=== PATIENT | male | born 1995 | race African-American/Black ===

== ENCOUNTER 2018-02-17 11:51 | Inpatient (IN) ==
--- NOTE | 2018-02-17 12:15 | DR.DIZZY ---
HPI Time seen Time Seen by Provider: 02/17/18 12:14 PCP Primary Care Physician: TERRY HPI Comment HPI Comment: PATIENT WAS DIAPHORETIC AND TACHYCARDIC WHEN EMS WAD CALL TO TRANSPORT PATIENT TO ED. DENIES NAUSEA OR VOMITING. NO TRAVEL OUT OF US REPORTED. Complaint Chief Complaint Doctor Comments: ABDOMINAL PAIN, DIARRHEA, FEVER, CHILLS AND WEAKNESS Chief Complaint:: PT. IS FROM THE [facility]. 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 PT. C/O ABDOMINAL PAIN, DIARRHEA, HEADACHE, WEAKNESS AND CHILLS. Nurses Notes Reviewed Nurses Notes Review: Yes Source History Provided: Patient and EMS Mode of Arrival Mode of Arrival: EMS Timing Onset of Chief Complaint: 02/17/18 Came on: Suddenly Duration Duration: Constant Duration: Hours Location of Weakness Weakness Location: Generalized Context Onset: At rest and With light exertion Does pt take pot. toxic medication?: No History of: None Stroke Symptoms: None Severity Severity: Normal activity level Modifying factors Worsens: Nothing Associated signs and symptoms Associated Signs and Symptoms: Weak, Fever and Headache PMH PMH Past Medical History: No Past Surgical History: No Surgical History: No History Family History History of Family Medical Conditions: No Social History Does patient currently use any type of tobacco product: Yes Have you used tobacco products in the last 12 months: Yes Type of Tobacco Use: Cigarettes Does any household member use tobacco: No Alcohol Use: None Do you use any recreational Drugs:: No Lives [facility] infectious screening In the last 2 months have you had wt loss of >10#?: NO Have you had fever, night sweats or hemotysis?: No Have you traveled outside the country in the last 6 months?: No Isolation: Standard ROS Review of Systems Constitutional: Diaphoresis, Fever, Weakness and Fatigue Eyes: No Symptoms Reported ENTM: No Symptoms Reported Respiratoy: No Symptoms Reported Cardiovascular: No Symptoms Reported Gastrointestinal/Abdominal: Abdominal Pain and Diarrhea Genitourinary: No Symptoms Reported Neurological: Headache and Weakness Musculoskeletal: Muscle Pain Hematologic/Lymphatic: No Symptoms Reported Endocrine: No Symptoms Reported Psychiatric: No Symptoms Reported All Other Systems: Reviewed and Negative PE Vital Signs Vitals: Temperature 99.6 F Pulse Rate [Apical] 87 Pulse Rate 106 Respiratory Rate 17 Blood Pressure [Left Arm] 114/63 Blood Pressure 123/76 O2 Sat by Pulse Oximetry 96 General Limitations: No Limitations General Appearance: Alert and In No Apparent Distress Head Head Exam: Normal Inspection Eyes Eye exam: Normal Appearance Pupils: Regular, Round: Bilateral and Reactive: Bilateral Sclera/Conjunctival: Normal Inspection: Bilateral ENT ENT Exam: Normal Exam, Normal Oropharynx and Normal External Ear Exam Neck Neck Exam: Normal Inspection, Full ROM and Trachea Midline; negative Tenderness, Meningismus and Lymphadenopathy Chest Chest Inspection: Normal Inspection and Symmetric Chest Wall Rise Respiratory Respiratory Exam: Normal Lung Sounds Bilat Respiratory Exam: Bilateral: Clear to Auscultation Cardiovascular Cardiovascular Exam: Regular Rate and Normal Rhythm Abdominal Exam Abdominal Exam: Normal Inspection, Normal Bowel Sounds and Soft Abdominal Tenderness: Diffuse and Moderate Rectal Rectal Exam: Deferred Extremeties Extremities Exam: Normal Inspection and Full ROM Back Back Exam: Normal Inspection and Full ROM Neurologic Neurological Exam: Alert and Oriented X3; negative Motor Sensory Deficit Patient Oriented To: Person, Place and Time Cranial Nerve Exam: EOM Function (II, III, IV, ): Normal, Facial Sensation (V): Normal, Facial Palsy (VII): Normal, Gag reflex (XI): Normal and Tongue Deviation: Normal Motor Strength - LUE: 5/5 Motor Strength - RUE: 5/5 Motor Strength - LLE: 5/5 Motor Strength - RLE: 5/5 Upper Motor Neuron Exam: Babinski Sign: Normal Psychiatric Psychiatric Exam: Normal Affect and Normal Mood Skin Skin Exam: Dry MDM Differential Diagnosis Differential Diagnosis: Dehydration, Electrolyte disorder and Hypoglycemia Differential Diagnosis Comment: ABDOMINAL PAIN, BOWEL OBSTRUCTION, INFECTIVE DIARRHEAM UTI. PANCREATITIS, C COURSE Treatment Treatment: SEE ORDERS. 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 Reviewed Laboratory Results Reviewed?: Yes Result Diagrams: 02/17/18 13:36 02/17/18 13:36 Laboratory: WBC 8.7 X10^3/uL (3.6-10.0) 02/17/18 13:36 RBC 4.70 X10^6/uL (4.7-6.0) 02/17/18 13:36 Hgb 14.4 g/dL (13.5-18.0) 02/17/18 13:36 Hct 42.1 % (42.0-54.0) 02/17/18 13:36 MCV 89.4 fL (80.0-100.0) 02/17/18 13:36 MCH 30.6 pg (27.0-34.0) 02/17/18 13:36 MCHC 34.2 g/dL (33.0-35.0) 02/17/18 13:36 RDW 13.1 % (11.6-16.5) 02/17/18 13:36 Plt Count 201 X10^3/uL (150.0-450.0) 02/17/18 13:36 MPV 6.4 fL (7.4-11.0) L 02/17/18 13:36 Neut % (Auto) 81.1 % (42.0-75.0) H 02/17/18 13:36 Lymph % (Auto) 11.9 % (21.0-51.0) L 02/17/18 13:36 [place] % (Auto) 6.9 % (0.0-13.0) 02/17/18 13:36 Eos % (Auto) 0.0 % (0.9-2.9) L 02/17/18 13:36 Baso % (Auto) 0.1 % (0.2-1.0) L 02/17/18 13:36 Neut # (Auto) 7.1 x10^3/uL (2.2-4.8) H 02/17/18 13:36 Lymph # (Auto) 1.0 X10^3/uL (1.3-2.9) L 02/17/18 13:36 [place] # (Auto) 0.6 x10^3/uL (0.3-0.8) 02/17/18 13:36 Eos # (Auto) 0.0 x10^3/uL (0.0-0.2) 02/17/18 13:36 Baso # (Auto) 0.0 X10^3/uL (0.0-0.1) 02/17/18 13:36 Absolute Nucleated RBC 0.1 /100WBC 02/17/18 13:36 Sodium 133 mmol/L (136-145) L 02/17/18 13:36 Corrected Sodium TNP 02/17/18 13:36 Potassium 4.0 mmol/L (3.5-5.1) 02/17/18 13:36 Chloride 97 mmol/L (98-107) L 02/17/18 13:36 Carbon Dioxide 29.3 mmol/L (21-32) 02/17/18 13:36 BUN 15 mg/dL (7-18) 02/17/18 13:36 Creatinine 1.58 mg/dL (0.70-1.30) H 02/17/18 13:36 Est GFR (MDRD) Af Amer > 60 (>60) 02/17/18 13:36 Est GFR (MDRD) Non-Af 59 (>60) 02/17/18 13:36 Glucose 104 mg/dL (65-99) H 02/17/18 13:36 Calcium 8.8 mg/dL (8.5-10.1) 02/17/18 13:36 Corrected Calcium TNP 02/17/18 13:36 Total Bilirubin 0.50 mg/dL (0.2-1.0) 02/17/18 13:36 AST 44 Units/L (15-37) H 02/17/18 13:36 ALT 36 Units/L (12-78) 02/17/18 13:36 Alkaline Phosphatase 69 Units/L (46-116) 02/17/18 13:36 Total Protein 8.0 g/dL (6.4-8.2) 02/17/18 13:36 Albumin 3.4 g/dL (3.4-5.0) 02/17/18 13:36 Globulin 4.6 g/dL (2.5-4.5) H 02/17/18 13:36 Albumin/Globulin Ratio 0.7 Ratio (1.1-2.1) L 02/17/18 13:36 Amylase 89 Units/L (25-115) 02/17/18 13:36 Lipase 118 Units/L (73-393) 02/17/18 13:36 Specimen Type Clean catch urine 02/17/18 13:47 Urine Color Dark yellow (YELLOW) 02/17/18 13:47 Urine Appearance Clear (CLEAR) 02/17/18 13:47 Urine pH 7.0 (5.0 - 8.0) 02/17/18 13:47 Ur Specific [place] 1.010 (1.000-1.030) 02/17/18 13:47 Urine Protein 2+ (NEGATIVE) 02/17/18 13:47 Urine Glucose (UA) Negative (NEGATIVE) 02/17/18 13:47 Urine Ketones Negative (NEGATIVE) 02/17/18 13:47 Urine Occult Blood Negative (NEGATIVE) 02/17/18 13:47 Urine Nitrite Negative (NEGATIVE) 02/17/18 13:47 Urine Bilirubin Negative (NEGATIVE) 02/17/18 13:47 Urine Urobilinogen Normal (NORMAL) 02/17/18 13:47 Ur Leukocyte Esterase Negative (NEGATIVE) 02/17/18 13:47 Urine RBC None seen /HPF (NONE SEEN) 02/17/18 13:47 Urine WBC None seen /HPF (NONE SEEN) 02/17/18 13:47 Ur Squamous Epith Cells Rare /HPF (NEGATIVE) 02/17/18 13:47 Amorphous Sediment 1+ /HPF (NEGATIVE) 02/17/18 13:47 Urine Bacteria Trace /HPF (NEGATIVE) 02/17/18 13:47 Ur Culture Indicated? No/not indicated 02/17/18 13:47 Urine Opiates Screen Negative (NEG=<300) 02/17/18 13:48 Urine Methadone Screen Negative (NEG=<300) 02/17/18 13:48 Ur Barbiturates Screen Negative (NEG=<200) 02/17/18 13:48 Ur Phencyclidine Scrn Negative (NEG=<25) 02/17/18 13:48 Ur Amphetamines Screen Negative (NEG=<1000) 02/17/18 13:48 U Benzodiazepines Scrn Negative (NEG=<200) 02/17/18 13:48 Urine Cocaine Screen Negative (NEG=<300) 02/17/18 13:48 U Marijuana (THC) Screen Negative (NEG=<50) 02/17/18 13:48 Influenza Type A (PCR) Negative (NEGATIVE) 02/17/18 12:15 Influenza Type B (PCR) Negative (NEGATIVE) 02/17/18 12:15 S. pyogenes (TEM-PCR) Not detected (NOT DETECT) 02/17/18 12:15 XRAY XRAY Interpreted by: Radiologist XRAY Findings: REPORT DISCUSS WITH PATIENT AND GUARD. Instructions Instructions: Constipation, Adult, [id number] Abdominal Pain, Adult, [id number] General Headache Without Cause, [id number]
[2018-02-17 13:08] LABS: STREP A BY PCR NOT DETECTED (NOT DETECT)
--- NOTE | 2018-02-17 13:47 | CT ---
HISTORY: Headache. Study: CT brain without contrast.Dose reduction techniques including Automated Exposure Control (AEC) and adjustment of mA and kV were utilized. Comparison: None. Technique: Multiple axial images of the brain were obtained from the skull base to the vertex without administration of IV contrast. Findings: No acute intraparenchymal hemorrhage or mass can be identified. No extra-axial fluid collections are seen. No alteration in the attenuation of the brain parenchyma can be identified to suggest acute or subacute ischemic change. The ventricular system is symmetric and nondilated. The extracranial structures are grossly unremarkable. IMPRESSION: No acute intracranial process can be identified. Reported By:
[2018-02-17 13:48] LABS: BASOPHILS % (AUTO) 0.1 % (0.2-1.0); HEMATOCRIT 42.1 % (42.0-54.0); HEMOGLOBIN 14.4 g/dL (13.5-18.0); LYMPHOCYTES % (AUTO) 11.9 % (21.0-51.0); MEAN CORPUSCULAR HEMOGLOBIN 30.6 pg (27.0-34.0); MEAN CORPUSCULAR HGB CONC 34.2 g/dL (33.0-35.0); MEAN CORPUSCULAR VOLUME 89.4 fL (80.0-100.0); MEAN PLATELET VOLUME 6.4 fL (7.4-11.0); MONOCYTES # (AUTO) 0.6 x10^3/uL (0.3-0.8); MONOCYTES % (AUTO) 6.9 % (0.0-13.0); NEUTROPHILS # (AUTO) 7.1 x10^3/uL (2.2-4.8); NEUTROPHILS % (AUTO) 81.1 % (42.0-75.0); PLATELET COUNT 201 X10^3/uL (150.0-450.0); RED CELL DISTRIBUTION WIDTH 13.1 % (11.6-16.5); WHITE BLOOD COUNT 8.7 X10^3/uL (3.6-10.0)
[2018-02-17 13:53] LABS: BILIRUBIN,URINE NEGATIVE (NEGATIVE); BLOOD/HEMOGLOBIN,URINE NEGATIVE (NEGATIVE); GLUCOSE, URINE NEGATIVE (NEGATIVE); KETONES,URINE NEGATIVE (NEGATIVE); LEUKOCYTE ESTERASE ,URINE NEGATIVE (NEGATIVE); NITRITES,URINE NEGATIVE (NEGATIVE); PROTEIN,URINE 2+ (NEGATIVE); UROBILINOGEN,URINE NORMAL (NORMAL)
[2018-02-17 13:56] LABS: ALANINE AMINOTRANSFERASE 36 Units/L (12-78); ALBUMIN 3.4 g/dL (3.4-5.0); ALKALINE PHOSPHATASE 69 Units/L (46-116); AMYLASE 89 Units/L (25-115); ASPARTATE AMINO TRANSFERASE 44 Units/L (15-37); BLOOD UREA NITROGEN 15 mg/dL (7-18); CALCIUM 8.8 mg/dL (8.5-10.1); CARBON DIOXIDE 29.3 mmol/L (21-32); CHLORIDE 97 mmol/L (98-107); CREATININE 1.58 mg/dL (0.70-1.30); LIPASE 118 Units/L (73-393); SODIUM 133 mmol/L (136-145); eGFR NON BLACK RACES 59 (>60)
[2018-02-17 13:59] LABS: AMORPHOUS SEDIMENT,UR 1+ /HPF (NEGATIVE); APPEARANCE,URINE CLEAR (CLEAR); BACTERIA,URINE TRACE /HPF (NEGATIVE); COLOR,URINE DARK YELLOW (YELLOW); RBC,URINE NONE SEEN /HPF (NONE SEEN); SQUAMOUS EPITHELIAL CELL,UR RARE /HPF (NEGATIVE)
--- NOTE | 2018-02-17 14:33 | RAD ---
HISTORY: Weakness, diarrhea, abdominal pain, fever. Study: Acute abdominal series Comparison: No priors Findings: The trachea is midline. The cardiac silhouette is unremarkable. Very mild hyperinflation of the lungs. A few calcified granulomas are present bilaterally. The bony thorax is unremarkable. Flat plate and upright evaluation of the abdomen demonstrates a small amount mid epigastric small bowel gas. Abundant stool is present throughout colon with a 7.2 cm rectal fecal impaction. No bowel obstruction is seen. There is no evidence of free intraperitoneal air or fluid.. No pathological soft tissue mass or calcification can be observed. The bony structures are grossly intact. IMPRESSION: 1. No acute cardiopulmonary disease. 2. Mild small bowel ileus pattern. No bowel obstruction or perforation is seen. There is an abundance of stool present throughout the colon with a 7.2 cm rectal fecal impaction. Reported By:
[2018-02-17] MEDS ORDERED: TYLENOL 325 MG TAB PO ONE ×2 (14:59→15:01)
[2018-02-17] MEDS ORDERED: TORADOL 30 MG VIAL IVP ONE (16:15)
[2018-02-17] MEDS ORDERED: TORADOL 30 MG VIAL ONE (16:16)
--- NOTE | 2018-02-17 16:50 | CT ---
HISTORY: Abdominal pain, diarrhea, fever Study: CT abdomen and pelvis without contrast Comparison: Same day radiograph Technique: Multiple axial images of the abdomen and pelvis were obtained without IV contrast. Dose reduction techniques including Automated Exposure Control (AEC) and adjustment of mA and kV were utilized. Findings: Please note evaluation is limited without use of IV contrast. The visualized lung bases are clear. The liver, spleen, pancreas, and adrenal glands are unremarkable in their unenhanced CT appearance. The gallbladder is normal. No renal calculi or obstructive uropathy identified. No free intraperitoneal air. Scattered air-fluid levels are seen within the small and large bowel suggesting nonspecific enteritis. No evidence of bowel obstruction. There is some scattered retained stool in the distal colon rectum. The appendix is not identified with certainty on this noncontrast exam. No ascites The soft tissues and osseous structures are unremarkable. Limited evaluation of vascular structures due to lack of contrast. No pathologically enlarged lymph nodes are identified. Normal urinary bladder. IMPRESSION: 1. Nonspecific enteritis pattern of the bowel. 2. Appendix not clearly identified on this noncontrast exam. Reported By:
[2018-02-17] MEDS ORDERED: CIPRO IV 400 MG PREMIX* 400 MG/200 ML IV.SOLN. IV ONE ×2 (18:04→18:05)
[2018-02-17] MEDS ORDERED: PEPCID 20 MG IV PREMIX* 20 MG/50 ML BAG IV PRN (18:11)
[2018-02-17 18:43] VITALS: BMI 25.4
[2018-02-17] MEDS: NS 1000 ML 1,000 ML IV SCH (19:58)
[2018-02-17] MEDS: FLAGYL IV PREMIX 500 MG BAG 500 MG/100 ML BAG IV SCH (20:00)
[2018-02-17] MEDS: TYLENOL 325 MG TAB PO PRN (23:01)
[2018-02-18] MEDS: TORADOL 30 MG VIAL IVP PRN ×3 (00:29→21:36)
[2018-02-18] MEDS: FLAGYL IV PREMIX 500 MG BAG 500 MG/100 ML BAG IV SCH ×4 (02:57→21:36)
[2018-02-18] MEDS: TYLENOL 325 MG TAB PO PRN ×3 (02:58→19:51)
[2018-02-18] MEDS: NS 1000 ML 1,000 ML IV SCH ×2 (04:42→17:24)
[2018-02-18 06:08] LABS: BASOPHILS % (AUTO) 0.1 % (0.2-1.0); EOSINOPHILS % (AUTO) 0.1 % (0.9-2.9); HEMATOCRIT 38.7 % (42.0-54.0); HEMOGLOBIN 13.4 g/dL (13.5-18.0); LYMPHOCYTES # (AUTO) 0.9 X10^3/uL (1.3-2.9); LYMPHOCYTES % (AUTO) 13.1 % (21.0-51.0); MEAN CORPUSCULAR HEMOGLOBIN 30.7 pg (27.0-34.0); MEAN CORPUSCULAR HGB CONC 34.6 g/dL (33.0-35.0); MEAN CORPUSCULAR VOLUME 88.6 fL (80.0-100.0); MEAN PLATELET VOLUME 7.1 fL (7.4-11.0); MONOCYTES # (AUTO) 0.6 x10^3/uL (0.3-0.8); MONOCYTES % (AUTO) 8.9 % (0.0-13.0); NEUTROPHILS # (AUTO) 5.5 x10^3/uL (2.2-4.8); NEUTROPHILS % (AUTO) 77.8 % (42.0-75.0); PLATELET COUNT 177 X10^3/uL (150.0-450.0); RED BLOOD COUNT 4.36 X10^6/uL (4.7-6.0); RED CELL DISTRIBUTION WIDTH 13.1 % (11.6-16.5); WHITE BLOOD COUNT 7.1 X10^3/uL (3.6-10.0)
[2018-02-18 06:23] LABS: ALANINE AMINOTRANSFERASE 36 Units/L (12-78); ALBUMIN 2.8 g/dL (3.4-5.0); ALKALINE PHOSPHATASE 58 Units/L (46-116); ASPARTATE AMINO TRANSFERASE 38 Units/L (15-37); BLOOD UREA NITROGEN 18 mg/dL (7-18); CALCIUM 8.1 mg/dL (8.5-10.1); CARBON DIOXIDE 27.6 mmol/L (21-32); CHLORIDE 101 mmol/L (98-107); COR CA(FOR HYPOALB) 9.1 mg/dL (8.5-10.1); CREATININE 1.49 mg/dL (0.70-1.30); SODIUM 136 mmol/L (136-145); eGFR NON BLACK RACES > 60 (>60)
[2018-02-18] MEDS: CIPRO IV 400 MG PREMIX* 400 MG/200 ML IV.SOLN. IV SCH ×2 (10:02→20:32)
--- NOTE | 2018-02-18 18:07 | DR.H&P ---
H&P - History & Physical for Day of: H&P Date: 02/17/18 - Chief Complaint Chief Complaint: FEVER, ABD PAIN N.V.D. - History of Present Illness History of Present Illness: 22 BM ER ADMISSION AFTER PRESENTING WITH CO HIGH FEVER, N/V/D WORSE TODAY WITH ABDOMINAL PAIN AND DEHYDRATION. PT WAS FEBRILE IN ER, DENIES ANY PMH OF DM, HTN, CAD. PT ADMITTED FOR TREATMENT OF ACUTE ENTERITIS, STARTED ON IV ATBX - Past Medical History Past Medical History: denies: Anxiety, Asthma, COPD, Coronary Artery Disease, Diabetes, Hypertension - Past Surgical History Surgical History: No History - Social History Does patient currently use any type of tobacco product: Yes Have you used tobacco products in the last 12 months: Yes Type of Tobacco Use: Cigarettes Does any household member use tobacco: No Alcohol Use: None Drug Use: None - Medications Home Medications: No Known Drug Allergies Allergy (Verified 02/17/18 11:56) CONTINUE taking the following medications NK 02/17/18 [History] - Review of Systems Constitutional: Fever, Chills, Weakness, Malaise Eyes: No Symptoms Reported ENT: No Symptoms Reported Respiratory: No Symptoms Reported Cardiovascular: No Symptoms Reported Gastrointestinal: Nausea, Vomiting, Abdominal Pain, Diarrhea Genitourinary: No Symptoms Reported Musculoskeletal: No Symptoms Reported Skin: No Symptoms Reported Neurological: No Symptoms Reported - Physical Exam Vital Signs: Temperature 99.1 F Pulse Rate [Apical] 85 Pulse Rate 106 Respiratory Rate 20 Blood Pressure [Left Arm] 120/58 Blood Pressure 123/76 O2 Sat by Pulse Oximetry 96 Oriented: Normal Eyes: Normal Ear: Normal Nose: Normal Throat: Normal Respiratory: Clear Throughout Cardiovascular: Normal : Normal Auscultation: Bowel Sounds: Normal Palpation: Normal Tenderness: Normal Skin: Normal Musculoskeletal: Normal Psychiatric: Normal Mood Description: Calm Speech Pattern: Clear, Appropriate - Assessment/Plan (1) Fever Status: Acute Plan: ADMIT, ADMISSION LABS CBC CMP. STOOL STUDIES. GENTLE IV HYDRATION, IV ATBX. REPEAT AM LABS, ENCOURAGE ORAL HYDRATION (2) Enteritis Status: Acute (3) Abdominal pain Status: Acute - Allergies Allergies/Adverse Reactions: Allergies Allergy/AdvReac Type Severity Reaction Status Date / Time No Known Drug Allergies Allergy Verified 02/17/18 11:56
[2018-02-18] MEDS: PHENERGAN INJ 25 MG IVP PRN (19:46)
[2018-02-18 21:27] LABS: CRYPTOSPORIDIUM PARVUM ANTIGEN NEGATIVE (NEGATIVE); GIARDIA LAMBLIA ANTIGEN NEGATIVE (NEGATIVE); STOOL FOR WBC NEGATIVE (NEGATIVE)
[2018-02-19] MEDS: NS 1000 ML 1,000 ML IV SCH ×4 (00:44→21:09)
[2018-02-19] MEDS: FLAGYL IV PREMIX 500 MG BAG 500 MG/100 ML BAG IV SCH ×4 (02:32→21:09)
[2018-02-19 06:02] LABS: BASOPHILS % (AUTO) 0.1 % (0.2-1.0); EOSINOPHILS % (AUTO) 0.6 % (0.9-2.9); HEMATOCRIT 40.3 % (42.0-54.0); HEMOGLOBIN 13.7 g/dL (13.5-18.0); LYMPHOCYTES # (AUTO) 1.2 X10^3/uL (1.3-2.9); LYMPHOCYTES % (AUTO) 21.8 % (21.0-51.0); MEAN CORPUSCULAR HEMOGLOBIN 30.3 pg (27.0-34.0); MEAN CORPUSCULAR VOLUME 89.3 fL (80.0-100.0); MEAN PLATELET VOLUME 7.5 fL (7.4-11.0); MONOCYTES # (AUTO) 0.5 x10^3/uL (0.3-0.8); MONOCYTES % (AUTO) 9.1 % (0.0-13.0); NEUTROPHILS # (AUTO) 3.8 x10^3/uL (2.2-4.8); NEUTROPHILS % (AUTO) 68.4 % (42.0-75.0); PLATELET COUNT 152 X10^3/uL (150.0-450.0); RED BLOOD COUNT 4.52 X10^6/uL (4.7-6.0); RED CELL DISTRIBUTION WIDTH 13.2 % (11.6-16.5); WHITE BLOOD COUNT 5.5 X10^3/uL (3.6-10.0)
[2018-02-19 06:17] LABS: ALANINE AMINOTRANSFERASE 38 Units/L (12-78); ALBUMIN 2.9 g/dL (3.4-5.0); ALKALINE PHOSPHATASE 59 Units/L (46-116); ASPARTATE AMINO TRANSFERASE 38 Units/L (15-37); BLOOD UREA NITROGEN 17 mg/dL (7-18); CALCIUM 8.2 mg/dL (8.5-10.1); CHLORIDE 104 mmol/L (98-107); COR CA(FOR HYPOALB) 9.1 mg/dL (8.5-10.1); CREATININE 1.33 mg/dL (0.70-1.30); SODIUM 138 mmol/L (136-145); TOTAL PROTEIN 7.2 g/dL (6.4-8.2); eGFR NON BLACK RACES > 60 (>60)
[2018-02-19] MEDS: TORADOL 30 MG VIAL IVP PRN ×2 (07:54→16:15)
[2018-02-19] MEDS: CIPRO IV 400 MG PREMIX* 400 MG/200 ML IV.SOLN. IV SCH ×2 (08:05→21:09)
[2018-02-19] MEDS ORDERED: ROCEPHIN VIAL 1 GRAM IVP ONE (12:23)
[2018-02-19] MEDS: TYLENOL 325 MG TAB PO PRN (17:25)
[2018-02-20] MEDS: PHENERGAN INJ 25 MG IVP PRN ×2 (01:15→13:17)
[2018-02-20] MEDS: FLAGYL IV PREMIX 500 MG BAG 500 MG/100 ML BAG IV SCH ×4 (02:00→21:14)
[2018-02-20] MEDS: TYLENOL 325 MG TAB PO PRN ×2 (05:01→14:43)
[2018-02-20 05:47] LABS: BASOPHILS % (AUTO) 0.5 % (0.2-1.0); EOSINOPHILS % (AUTO) 0.7 % (0.9-2.9); HEMATOCRIT 37.4 % (42.0-54.0); HEMOGLOBIN 12.8 g/dL (13.5-18.0); LYMPHOCYTES # (AUTO) 0.9 X10^3/uL (1.3-2.9); LYMPHOCYTES % (AUTO) 21.3 % (21.0-51.0); MEAN CORPUSCULAR HEMOGLOBIN 30.3 pg (27.0-34.0); MEAN CORPUSCULAR HGB CONC 34.3 g/dL (33.0-35.0); MEAN CORPUSCULAR VOLUME 88.3 fL (80.0-100.0); MEAN PLATELET VOLUME 7.8 fL (7.4-11.0); MONOCYTES # (AUTO) 0.5 x10^3/uL (0.3-0.8); NEUTROPHILS # (AUTO) 2.8 x10^3/uL (2.2-4.8); NEUTROPHILS % (AUTO) 65.5 % (42.0-75.0); PLATELET COUNT 134 X10^3/uL (150.0-450.0); RED BLOOD COUNT 4.24 X10^6/uL (4.7-6.0); RED CELL DISTRIBUTION WIDTH 13.2 % (11.6-16.5); WHITE BLOOD COUNT 4.3 X10^3/uL (3.6-10.0)
[2018-02-20 05:54] LABS: ALANINE AMINOTRANSFERASE 31 Units/L (12-78); ALBUMIN 2.4 g/dL (3.4-5.0); ALKALINE PHOSPHATASE 52 Units/L (46-116); ASPARTATE AMINO TRANSFERASE 27 Units/L (15-37); BLOOD UREA NITROGEN 15 mg/dL (7-18); CALCIUM 7.7 mg/dL (8.5-10.1); CARBON DIOXIDE 24.6 mmol/L (21-32); CHLORIDE 105 mmol/L (98-107); CREATININE 1.38 mg/dL (0.70-1.30); SODIUM 138 mmol/L (136-145); TOTAL PROTEIN 6.2 g/dL (6.4-8.2); eGFR NON BLACK RACES > 60 (>60)
[2018-02-20] MEDS: CIPRO IV 400 MG PREMIX* 400 MG/200 ML IV.SOLN. IV SCH ×2 (09:13→21:14)
[2018-02-20] MEDS: NS 1000 ML 1,000 ML IV SCH ×3 (09:18→23:28)
--- NOTE | 2018-02-20 11:42 | RAD ---
HISTORY: Fever and abdominal pain Study: Two-view chest Comparison: None Technique: PA and lateral chest Findings: The soft tissues and bony thorax are normal. The heart size configuration airway and vascularity are normal the lungs are clear without infiltrates effusions. There is no hilar or mediastinal adenopathy. IMPRESSION: 1. Normal chest no acute cardiopulmonary abnormalities. Reported By:
--- NOTE | 2018-02-20 15:34 | PCM.PROG ---
Progress Note - Progress Note for Day of Date of Exam: 02/18/18 - Subjective Subjective: 22 BM ER ADMISSION WITH FEBRILE ILLNESS AND ENTERITIS. PT CURRENTLY ON IV ATBX WITH STOOL STUDIES PENDING. PT REPORTS IMPROVING N/V, MILD ABDOMINAL PAIN. PT CONTINUES WITH FEVER, BLOOD CULTURES COLLECTED ON ADMISSION NEGATIVE AT THIS TIME - Past Medical Family Social History Past Med/Fam/Surg Hx: No changes since H&P Allergies: Allergies No Known Drug Allergies Allergy (Verified 02/17/18 11:56) - Review of Systems ROS: No change since H&P - Vital Signs and I&O's Vital Signs: Temperature 104.5 F Pulse Rate [Apical] 74 Pulse Rate 106 Respiratory Rate 20 Blood Pressure [Left Arm] 130/86 Blood Pressure 123/76 O2 Sat by Pulse Oximetry 96 Intake and Output: Intake & Output 02/18/18 02/19/18 02/20/18 02/21/18 11:59 11:59 11:59 11:59 Intake Total 1160 / 1160 4720 / 4720 2498 / 2498 Balance 1160 / 1160 4720 / 4720 2498 / 2498 - Physical Exam Oriented: Normal Eyes: Normal Ear: Normal Nose: Normal Throat: Normal Respiratory: Normal Cardiovascular: Normal : Normal Auscultation: Bowel Sounds: Normal Tenderness: Epigastric, Mild Skin: Normal Musculoskeletal: Normal Psychiatric: Normal Mood Description: Calm Speech Pattern: Clear, Appropriate - Laboratory and Diagnostics Result Diagrams: 02/20/18 05:15 02/20/18 05:15 Labs: 02/18/18 20:33 Stool Stool Culture - Preliminary 02/18/18 20:33 Stool - Final 02/17/18 15:45 Blood Blood Culture - Preliminary 02/17/18 15:15 Blood Blood Culture - Preliminary Laboratory WBC 4.3 X10^3/uL (3.6-10.0) 02/20/18 05:15 RBC 4.24 X10^6/uL (4.7-6.0) L 02/20/18 05:15 Hgb 12.8 g/dL (13.5-18.0) L 02/20/18 05:15 Hct 37.4 % (42.0-54.0) L 02/20/18 05:15 MCV 88.3 fL (80.0-100.0) 02/20/18 05:15 MCH 30.3 pg (27.0-34.0) 02/20/18 05:15 MCHC 34.3 g/dL (33.0-35.0) 02/20/18 05:15 RDW 13.2 % (11.6-16.5) 02/20/18 05:15 Plt Count 134 X10^3/uL (150.0-450.0) L 02/20/18 05:15 MPV 7.8 fL (7.4-11.0) 02/20/18 05:15 Neut % (Auto) 65.5 % (42.0-75.0) 02/20/18 05:15 Lymph % (Auto) 21.3 % (21.0-51.0) 02/20/18 05:15 [place] % (Auto) 12.0 % (0.0-13.0) 02/20/18 05:15 Eos % (Auto) 0.7 % (0.9-2.9) L 02/20/18 05:15 Baso % (Auto) 0.5 % (0.2-1.0) 02/20/18 05:15 Neut # (Auto) 2.8 x10^3/uL (2.2-4.8) 02/20/18 05:15 Lymph # (Auto) 0.9 X10^3/uL (1.3-2.9) L 02/20/18 05:15 [place] # (Auto) 0.5 x10^3/uL (0.3-0.8) 02/20/18 05:15 Eos # (Auto) 0.0 x10^3/uL (0.0-0.2) 02/20/18 05:15 Baso # (Auto) 0.0 X10^3/uL (0.0-0.1) 02/20/18 05:15 Absolute Nucleated RBC 0.0 /100WBC 02/20/18 05:15 Sodium 138 mmol/L (136-145) 02/20/18 05:15 Corrected Sodium TNP 02/20/18 05:15 Potassium 4.2 mmol/L (3.5-5.1) 02/20/18 05:15 Chloride 105 mmol/L (98-107) 02/20/18 05:15 Carbon Dioxide 24.6 mmol/L (21-32) 02/20/18 05:15 BUN 15 mg/dL (7-18) 02/20/18 05:15 Creatinine 1.38 mg/dL (0.70-1.30) H 02/20/18 05:15 Est GFR (MDRD) Af Amer > 60 (>60) 02/20/18 05:15 Est GFR (MDRD) Non-Af > 60 (>60) 02/20/18 05:15 Glucose 109 mg/dL (65-99) H 02/20/18 05:15 Calcium 7.7 mg/dL (8.5-10.1) L 02/20/18 05:15 Corrected Calcium 9.0 mg/dL (8.5-10.1) 02/20/18 05:15 Total Bilirubin 0.30 mg/dL (0.2-1.0) 02/20/18 05:15 AST 27 Units/L (15-37) 02/20/18 05:15 ALT 31 Units/L (12-78) 02/20/18 05:15 Alkaline Phosphatase 52 Units/L (46-116) 02/20/18 05:15 Total Protein 6.2 g/dL (6.4-8.2) L 02/20/18 05:15 Albumin 2.4 g/dL (3.4-5.0) L 02/20/18 05:15 Globulin 3.8 g/dL (2.5-4.5) 02/20/18 05:15 Albumin/Globulin Ratio 0.6 Ratio (1.1-2.1) L 02/20/18 05:15 Amylase 89 Units/L (25-115) 02/17/18 13:36 Lipase 118 Units/L (73-393) 02/17/18 13:36 Specimen Type Clean catch urine 02/17/18 13:47 Urine Color Dark yellow (YELLOW) 02/17/18 13:47 Urine Appearance Clear (CLEAR) 02/17/18 13:47 Urine pH 7.0 (5.0 - 8.0) 02/17/18 13:47 Ur Specific [place] 1.010 (1.000-1.030) 02/17/18 13:47 Urine Protein 2+ (NEGATIVE) 02/17/18 13:47 Urine Glucose (UA) Negative (NEGATIVE) 02/17/18 13:47 Urine Ketones Negative (NEGATIVE) 02/17/18 13:47 Urine Occult Blood Negative (NEGATIVE) 02/17/18 13:47 Urine Nitrite Negative (NEGATIVE) 02/17/18 13:47 Urine Bilirubin Negative (NEGATIVE) 02/17/18 13:47 Urine Urobilinogen Normal (NORMAL) 02/17/18 13:47 Ur Leukocyte Esterase Negative (NEGATIVE) 02/17/18 13:47 Urine RBC None seen /HPF (NONE SEEN) 02/17/18 13:47 Urine WBC None seen /HPF (NONE SEEN) 02/17/18 13:47 Ur Squamous Epith Cells Rare /HPF (NEGATIVE) 02/17/18 13:47 Amorphous Sediment 1+ /HPF (NEGATIVE) 02/17/18 13:47 Urine Bacteria Trace /HPF (NEGATIVE) 02/17/18 13:47 Ur Culture Indicated? No/not indicated 02/17/18 13:47 Stool Description 7g,brown,formed 02/18/18 20:33 Stl Occult Blood (IFOB) Negative (NEGATIVE) 02/18/18 20:33 Stool for White Cells Negative (NEGATIVE) 02/18/18 20:33 Stl C. diff Tox B Gene Negative (NEGATIVE) 02/18/18 20:33 Stl C. diff [id number] Negative (NEGATIVE) 02/18/18 20:33 Urine Opiates Screen Negative (NEG=<300) 02/17/18 13:48 Urine Methadone Screen Negative (NEG=<300) 02/17/18 13:48 Ur Barbiturates Screen Negative (NEG=<200) 02/17/18 13:48 Ur Phencyclidine Scrn Negative (NEG=<25) 02/17/18 13:48 Ur Amphetamines Screen Negative (NEG=<1000) 02/17/18 13:48 U Benzodiazepines Scrn Negative (NEG=<200) 02/17/18 13:48 Urine Cocaine Screen Negative (NEG=<300) 02/17/18 13:48 U Marijuana (THC) Screen Negative (NEG=<50) 02/17/18 13:48 Cryptosporid parvum Ag Negative (NEGATIVE) 02/18/18 20:33 Giardia lamblia Ag Negative (NEGATIVE) 02/18/18 20:33 Influenza Type A (PCR) Negative (NEGATIVE) 02/17/18 12:15 Influenza Type B (PCR) Negative (NEGATIVE) 02/17/18 12:15 S. pyogenes (TEM-PCR) Not detected (NOT DETECT) 02/17/18 12:15 - Plan (1) Fever Status: Acute Plan: AM LABS CBC CMP. STOOL STUDIES. GENTLE IV HYDRATION, IV ATBX. REPEAT AM LABS, ENCOURAGE ORAL HYDRATION (2) Enteritis Status: Acute Plan: IV ATBX, STOOL STUDIES (3) Abdominal pain Status: Acute
--- NOTE | 2018-02-20 15:37 | PCM.PROG ---
Progress Note - Progress Note for Day of Date of Exam: 02/20/18 - Subjective Subjective: 22 BM ER ADMISSION WITH FEBRILE ILLNESS AND ENTERITIS. PT CURRENTLY ON IV ATBX WITH STOOL STUDIES NEGATIVE PT REPORTS IMPROVING N/V, MILD ABDOMINAL PAIN, IMPROVED APPETITE. CREAT IMPROVING SLIGHTLY. PT CONTINUES WITH FEVER, BLOOD CULTURES COLLECTED ON ADMISSION NEGATIVE AT THIS TIME. CXR WNL, WILL OBTAIN CT WITH CONTRAST OF ABD/PELVIS - Past Medical Family Social History Past Med/Fam/Surg Hx: No changes since H&P Allergies: Allergies No Known Drug Allergies Allergy (Verified 02/17/18 11:56) - Review of Systems ROS: No change since H&P - Vital Signs and I&O's Vital Signs: Temperature 104.5 F Pulse Rate [Apical] 74 Pulse Rate 106 Respiratory Rate 20 Blood Pressure [Left Arm] 130/86 Blood Pressure 123/76 O2 Sat by Pulse Oximetry 96 Intake and Output: Intake & Output 02/18/18 02/19/18 02/20/18 02/21/18 11:59 11:59 11:59 11:59 Intake Total 1160 / 1160 4720 / 4720 2498 / 2498 Balance 1160 / 1160 4720 / 4720 2498 / 2498 - Physical Exam Oriented: Normal Eyes: Normal Ear: Normal Nose: Normal Throat: Normal Respiratory: Normal Cardiovascular: Normal : Normal Auscultation: Bowel Sounds: Normal Tenderness: Epigastric, Mild Skin: Normal Musculoskeletal: Normal Psychiatric: Normal Mood Description: Calm Speech Pattern: Clear, Appropriate - Laboratory and Diagnostics Result Diagrams: 02/20/18 05:15 02/20/18 05:15 Labs: 02/18/18 20:33 Stool Stool Culture - Preliminary 02/18/18 20:33 Stool - Final 02/17/18 15:45 Blood Blood Culture - Preliminary 02/17/18 15:15 Blood Blood Culture - Preliminary Laboratory WBC 4.3 X10^3/uL (3.6-10.0) 02/20/18 05:15 RBC 4.24 X10^6/uL (4.7-6.0) L 02/20/18 05:15 Hgb 12.8 g/dL (13.5-18.0) L 02/20/18 05:15 Hct 37.4 % (42.0-54.0) L 02/20/18 05:15 MCV 88.3 fL (80.0-100.0) 02/20/18 05:15 MCH 30.3 pg (27.0-34.0) 02/20/18 05:15 MCHC 34.3 g/dL (33.0-35.0) 02/20/18 05:15 RDW 13.2 % (11.6-16.5) 02/20/18 05:15 Plt Count 134 X10^3/uL (150.0-450.0) L 02/20/18 05:15 MPV 7.8 fL (7.4-11.0) 02/20/18 05:15 Neut % (Auto) 65.5 % (42.0-75.0) 02/20/18 05:15 Lymph % (Auto) 21.3 % (21.0-51.0) 02/20/18 05:15 [place] % (Auto) 12.0 % (0.0-13.0) 02/20/18 05:15 Eos % (Auto) 0.7 % (0.9-2.9) L 02/20/18 05:15 Baso % (Auto) 0.5 % (0.2-1.0) 02/20/18 05:15 Neut # (Auto) 2.8 x10^3/uL (2.2-4.8) 02/20/18 05:15 Lymph # (Auto) 0.9 X10^3/uL (1.3-2.9) L 02/20/18 05:15 [place] # (Auto) 0.5 x10^3/uL (0.3-0.8) 02/20/18 05:15 Eos # (Auto) 0.0 x10^3/uL (0.0-0.2) 02/20/18 05:15 Baso # (Auto) 0.0 X10^3/uL (0.0-0.1) 02/20/18 05:15 Absolute Nucleated RBC 0.0 /100WBC 02/20/18 05:15 Sodium 138 mmol/L (136-145) 02/20/18 05:15 Corrected Sodium TNP 02/20/18 05:15 Potassium 4.2 mmol/L (3.5-5.1) 02/20/18 05:15 Chloride 105 mmol/L (98-107) 02/20/18 05:15 Carbon Dioxide 24.6 mmol/L (21-32) 02/20/18 05:15 BUN 15 mg/dL (7-18) 02/20/18 05:15 Creatinine 1.38 mg/dL (0.70-1.30) H 02/20/18 05:15 Est GFR (MDRD) Af Amer > 60 (>60) 02/20/18 05:15 Est GFR (MDRD) Non-Af > 60 (>60) 02/20/18 05:15 Glucose 109 mg/dL (65-99) H 02/20/18 05:15 Calcium 7.7 mg/dL (8.5-10.1) L 02/20/18 05:15 Corrected Calcium 9.0 mg/dL (8.5-10.1) 02/20/18 05:15 Total Bilirubin 0.30 mg/dL (0.2-1.0) 02/20/18 05:15 AST 27 Units/L (15-37) 02/20/18 05:15 ALT 31 Units/L (12-78) 02/20/18 05:15 Alkaline Phosphatase 52 Units/L (46-116) 02/20/18 05:15 Total Protein 6.2 g/dL (6.4-8.2) L 02/20/18 05:15 Albumin 2.4 g/dL (3.4-5.0) L 02/20/18 05:15 Globulin 3.8 g/dL (2.5-4.5) 02/20/18 05:15 Albumin/Globulin Ratio 0.6 Ratio (1.1-2.1) L 02/20/18 05:15 Amylase 89 Units/L (25-115) 02/17/18 13:36 Lipase 118 Units/L (73-393) 02/17/18 13:36 Specimen Type Clean catch urine 02/17/18 13:47 Urine Color Dark yellow (YELLOW) 02/17/18 13:47 Urine Appearance Clear (CLEAR) 02/17/18 13:47 Urine pH 7.0 (5.0 - 8.0) 02/17/18 13:47 Ur Specific [place] 1.010 (1.000-1.030) 02/17/18 13:47 Urine Protein 2+ (NEGATIVE) 02/17/18 13:47 Urine Glucose (UA) Negative (NEGATIVE) 02/17/18 13:47 Urine Ketones Negative (NEGATIVE) 02/17/18 13:47 Urine Occult Blood Negative (NEGATIVE) 02/17/18 13:47 Urine Nitrite Negative (NEGATIVE) 02/17/18 13:47 Urine Bilirubin Negative (NEGATIVE) 02/17/18 13:47 Urine Urobilinogen Normal (NORMAL) 02/17/18 13:47 Ur Leukocyte Esterase Negative (NEGATIVE) 02/17/18 13:47 Urine RBC None seen /HPF (NONE SEEN) 02/17/18 13:47 Urine WBC None seen /HPF (NONE SEEN) 02/17/18 13:47 Ur Squamous Epith Cells Rare /HPF (NEGATIVE) 02/17/18 13:47 Amorphous Sediment 1+ /HPF (NEGATIVE) 02/17/18 13:47 Urine Bacteria Trace /HPF (NEGATIVE) 02/17/18 13:47 Ur Culture Indicated? No/not indicated 02/17/18 13:47 Stool Description 7g,brown,formed 02/18/18 20:33 Stl Occult Blood (IFOB) Negative (NEGATIVE) 02/18/18 20:33 Stool for White Cells Negative (NEGATIVE) 02/18/18 20:33 Stl C. diff Tox B Gene Negative (NEGATIVE) 02/18/18 20:33 Stl C. diff 027-NAP1-BI Negative (NEGATIVE) 02/18/18 20:33 Urine Opiates Screen Negative (NEG=<300) 02/17/18 13:48 Urine Methadone Screen Negative (NEG=<300) 02/17/18 13:48 Ur Barbiturates Screen Negative (NEG=<200) 02/17/18 13:48 Ur Phencyclidine Scrn Negative (NEG=<25) 02/17/18 13:48 Ur Amphetamines Screen Negative (NEG=<1000) 02/17/18 13:48 U Benzodiazepines Scrn Negative (NEG=<200) 02/17/18 13:48 Urine Cocaine Screen Negative (NEG=<300) 02/17/18 13:48 U Marijuana (THC) Screen Negative (NEG=<50) 02/17/18 13:48 Cryptosporid parvum Ag Negative (NEGATIVE) 02/18/18 20:33 Giardia lamblia Ag Negative (NEGATIVE) 02/18/18 20:33 Influenza Type A (PCR) Negative (NEGATIVE) 02/17/18 12:15 Influenza Type B (PCR) Negative (NEGATIVE) 02/17/18 12:15 S. pyogenes (TEM-PCR) Not detected (NOT DETECT) 02/17/18 12:15 - Plan (1) Fever Status: Acute Plan: AM LABS CBC CMP. STOOL STUDIES. GENTLE IV HYDRATION, IV ATBX. REPEAT AM LABS, ENCOURAGE ORAL HYDRATION (2) Enteritis Status: Acute Plan: IV ATBX, STOOL STUDIES (3) Abdominal pain Status: Acute (4) Dehydration Status: Acute Plan: GENTLE ORAL AND IV HYDRATION
[2018-02-20] MEDS: ROCEPHIN VIAL 1 GRAM IVP SCH (16:58)
[2018-02-20] MEDS ORDERED: NS 100 ML IV 100 ML IV ONE (17:54)
--- NOTE | 2018-02-20 18:37 | CT ---
HISTORY: Enteritis, abdominal pain Study: CT abdomen and pelvis with contrast Comparison: Noncontrast CT 02/17/2018 Technique: Multiple axial images of the abdomen and pelvis were obtained with IV contrast. Oral contrast was administered. Dose reduction techniques including Automated Exposure Control (AEC) and adjustment of mA and kV were utilized. Findings: There is mild dependent lung zone atelectasis. The liver, spleen, pancreas, and adrenal glands are unremarkable. The gallbladder is normal. No renal calculi or obstructive uropathy. No free intraperitoneal air. Oral contrast reaches the proximal large bowel. Again noted are scattered air-fluid levels throughout the small and large bowel suggestive of a nonspecific enteritis pattern without bowel wall thickening or evidence of obstruction. The appendix is seen in the right lower quadrant on axial images 54 through 60 and appears normal in caliber measuring between 6 and 7 mm. No surrounding fluid, inflammatory stranding or abscess identified. The soft tissues and osseous structures are unremarkable. The vascular structures are within normal limits for age. No pathologically enlarged lymph nodes are identified. The urinary bladder is not well distended but otherwise unremarkable. IMPRESSION: 1. Stable nonspecific enteritis pattern of the bowel without evidence of obstruction. 2. Appendix appears normal. Reported By:
[2018-02-20] MEDS: TORADOL 30 MG VIAL IVP PRN (21:15)
[2018-02-20 22:00] LABS: BILIRUBIN,URINE NEGATIVE (NEGATIVE); BLOOD/HEMOGLOBIN,URINE NEGATIVE (NEGATIVE); GLUCOSE, URINE NEGATIVE (NEGATIVE); KETONES,URINE NEGATIVE (NEGATIVE); LEUKOCYTE ESTERASE ,URINE 1+ (NEGATIVE); NITRITES,URINE NEGATIVE (NEGATIVE); PROTEIN,URINE 1+ (NEGATIVE); UROBILINOGEN,URINE NORMAL (NORMAL)
[2018-02-20 22:15] LABS: APPEARANCE,URINE SLIGHTLY HAZY (CLEAR); BACTERIA,URINE NEGATIVE /HPF (NEGATIVE); COLOR,URINE PALE YELLOW (YELLOW); RBC,URINE NONE SEEN /HPF (NONE SEEN); SQUAMOUS EPITHELIAL CELL,UR NEGATIVE /HPF (NEGATIVE)
[2018-02-21] MEDS: FLAGYL IV PREMIX 500 MG BAG 500 MG/100 ML BAG IV SCH ×4 (02:00→22:00)
[2018-02-21] MEDS: TYLENOL 325 MG TAB PO PRN ×4 (02:00→22:03)
[2018-02-21] MEDS: PHENERGAN INJ 25 MG IVP PRN (02:01)
[2018-02-21] MEDS: NS 1000 ML 1,000 ML IV SCH ×2 (03:53→12:44)
[2018-02-21 07:19] LABS: ALANINE AMINOTRANSFERASE 35 Units/L (12-78); ALBUMIN 2.5 g/dL (3.4-5.0); ALKALINE PHOSPHATASE 53 Units/L (46-116); ASPARTATE AMINO TRANSFERASE 39 Units/L (15-37); BLOOD UREA NITROGEN 14 mg/dL (7-18); CALCIUM 8.2 mg/dL (8.5-10.1); CARBON DIOXIDE 24.9 mmol/L (21-32); CHLORIDE 102 mmol/L (98-107); COR CA(FOR HYPOALB) 9.4 mg/dL (8.5-10.1); CREATININE 1.34 mg/dL (0.70-1.30); SODIUM 136 mmol/L (136-145); TOTAL PROTEIN 6.4 g/dL (6.4-8.2); eGFR NON BLACK RACES > 60 (>60)
[2018-02-21 07:21] LABS: BASOPHILS % (AUTO) 0.2 % (0.2-1.0); EOSINOPHILS # (AUTO) 0.1 x10^3/uL (0.0-0.2); EOSINOPHILS % (AUTO) 1.2 % (0.9-2.9); HEMATOCRIT 38.7 % (42.0-54.0); HEMOGLOBIN 13.2 g/dL (13.5-18.0); LYMPHOCYTES # (AUTO) 0.9 X10^3/uL (1.3-2.9); LYMPHOCYTES % (AUTO) 17.9 % (21.0-51.0); MEAN CORPUSCULAR HEMOGLOBIN 30.2 pg (27.0-34.0); MEAN CORPUSCULAR HGB CONC 34.2 g/dL (33.0-35.0); MEAN CORPUSCULAR VOLUME 88.5 fL (80.0-100.0); MEAN PLATELET VOLUME 7.5 fL (7.4-11.0); MONOCYTES # (AUTO) 0.5 x10^3/uL (0.3-0.8); MONOCYTES % (AUTO) 10.2 % (0.0-13.0); NEUTROPHILS # (AUTO) 3.6 x10^3/uL (2.2-4.8); NEUTROPHILS % (AUTO) 70.5 % (42.0-75.0); PLATELET COUNT 139 X10^3/uL (150.0-450.0); RED BLOOD COUNT 4.37 X10^6/uL (4.7-6.0); RED CELL DISTRIBUTION WIDTH 13.2 % (11.6-16.5)
[2018-02-21] MEDS: ROCEPHIN VIAL 1 GRAM IVP SCH (08:53)
[2018-02-21] MEDS: CIPRO IV 400 MG PREMIX* 400 MG/200 ML IV.SOLN. IV SCH ×2 (08:53→21:00)
[2018-02-22] MEDS: NS 1000 ML 1,000 ML IV SCH ×5 (01:00→17:21)
[2018-02-22] MEDS: FLAGYL IV PREMIX 500 MG BAG 500 MG/100 ML BAG IV SCH ×4 (02:16→21:22)
[2018-02-22] MEDS: TYLENOL 325 MG TAB PO PRN (02:16)
[2018-02-22 06:11] LABS: BASOPHILS % (AUTO) 0.3 % (0.2-1.0); EOSINOPHILS # (AUTO) 0.1 x10^3/uL (0.0-0.2); EOSINOPHILS % (AUTO) 1.5 % (0.9-2.9); HEMATOCRIT 36.6 % (42.0-54.0); HEMOGLOBIN 12.5 g/dL (13.5-18.0); LYMPHOCYTES # (AUTO) 0.9 X10^3/uL (1.3-2.9); LYMPHOCYTES % (AUTO) 19.8 % (21.0-51.0); MEAN CORPUSCULAR HEMOGLOBIN 30.3 pg (27.0-34.0); MEAN CORPUSCULAR HGB CONC 34.1 g/dL (33.0-35.0); MEAN CORPUSCULAR VOLUME 88.9 fL (80.0-100.0); MEAN PLATELET VOLUME 7.9 fL (7.4-11.0); MONOCYTES # (AUTO) 0.4 x10^3/uL (0.3-0.8); NEUTROPHILS # (AUTO) 3.1 x10^3/uL (2.2-4.8); NEUTROPHILS % (AUTO) 69.4 % (42.0-75.0); PLATELET COUNT 130 X10^3/uL (150.0-450.0); RED BLOOD COUNT 4.12 X10^6/uL (4.7-6.0); RED CELL DISTRIBUTION WIDTH 13.4 % (11.6-16.5); WHITE BLOOD COUNT 4.4 X10^3/uL (3.6-10.0)
[2018-02-22 06:57] LABS: ALANINE AMINOTRANSFERASE 62 Units/L (12-78); ALBUMIN 2.2 g/dL (3.4-5.0); ALKALINE PHOSPHATASE 46 Units/L (46-116); ASPARTATE AMINO TRANSFERASE 73 Units/L (15-37); BLOOD UREA NITROGEN 12 mg/dL (7-18); CALCIUM 7.8 mg/dL (8.5-10.1); CHLORIDE 103 mmol/L (98-107); COR CA(FOR HYPOALB) 9.2 mg/dL (8.5-10.1); CREATININE 1.24 mg/dL (0.70-1.30); SODIUM 135 mmol/L (136-145); TOTAL PROTEIN 5.7 g/dL (6.4-8.2); eGFR NON BLACK RACES > 60 (>60)
[2018-02-22] MEDS: PHENERGAN INJ 25 MG IVP PRN (07:18)
[2018-02-22] MEDS: ROCEPHIN VIAL 1 GRAM IVP SCH (08:00)
[2018-02-22] MEDS: CIPRO IV 400 MG PREMIX* 400 MG/200 ML IV.SOLN. IV SCH ×2 (08:00→21:22)
[2018-02-22] MEDS: TORADOL 30 MG VIAL IVP PRN ×3 (08:03→23:44)
[2018-02-23] MEDS: FLAGYL IV PREMIX 500 MG BAG 500 MG/100 ML BAG IV SCH ×4 (02:16→21:10)
[2018-02-23 05:19] LABS: BASOPHILS % (AUTO) 0.2 % (0.2-1.0); EOSINOPHILS # (AUTO) 0.1 x10^3/uL (0.0-0.2); EOSINOPHILS % (AUTO) 2.1 % (0.9-2.9); HEMATOCRIT 39.5 % (42.0-54.0); HEMOGLOBIN 13.2 g/dL (13.5-18.0); LYMPHOCYTES # (AUTO) 0.8 X10^3/uL (1.3-2.9); LYMPHOCYTES % (AUTO) 18.8 % (21.0-51.0); MEAN CORPUSCULAR HEMOGLOBIN 29.9 pg (27.0-34.0); MEAN CORPUSCULAR HGB CONC 33.4 g/dL (33.0-35.0); MEAN CORPUSCULAR VOLUME 89.5 fL (80.0-100.0); MONOCYTES # (AUTO) 0.4 x10^3/uL (0.3-0.8); NEUTROPHILS % (AUTO) 68.9 % (42.0-75.0); PLATELET COUNT 140 X10^3/uL (150.0-450.0); RED BLOOD COUNT 4.41 X10^6/uL (4.7-6.0); RED CELL DISTRIBUTION WIDTH 13.4 % (11.6-16.5); WHITE BLOOD COUNT 4.4 X10^3/uL (3.6-10.0)
[2018-02-23 05:24] LABS: ALANINE AMINOTRANSFERASE 92 Units/L (12-78); ALBUMIN 2.5 g/dL (3.4-5.0); ALKALINE PHOSPHATASE 56 Units/L (46-116); ASPARTATE AMINO TRANSFERASE 101 Units/L (15-37); BLOOD UREA NITROGEN 15 mg/dL (7-18); CALCIUM 7.9 mg/dL (8.5-10.1); CARBON DIOXIDE 26.7 mmol/L (21-32); CHLORIDE 101 mmol/L (98-107); COR CA(FOR HYPOALB) 9.1 mg/dL (8.5-10.1); CREATININE 1.25 mg/dL (0.70-1.30); SODIUM 135 mmol/L (136-145); TOTAL PROTEIN 6.5 g/dL (6.4-8.2); eGFR NON BLACK RACES > 60 (>60)
[2018-02-23] MEDS: NS 1000 ML 1,000 ML IV SCH ×4 (05:43→23:19)
[2018-02-23] MEDS: TYLENOL 325 MG TAB PO PRN ×3 (08:23→23:43)
[2018-02-23] MEDS: CIPRO IV 400 MG PREMIX* 400 MG/200 ML IV.SOLN. IV SCH ×2 (08:23→22:35)
[2018-02-23] MEDS: ROCEPHIN VIAL 1 GRAM IVP SCH (08:24)
--- NOTE | 2018-02-23 08:57 | RAD ---
HISTORY: Fever Study: AP portable chest Comparison: 02/20/2018 Findings: The lungs are clear. The heart size is normal. No acute bony abnormalities are identified. IMPRESSION: 1. No radiographic evidence of acute cardiopulmonary disease or significant change is noted when compared to the prior examination. Reported By:
[2018-02-23 09:54] LABS: BILIRUBIN,URINE NEGATIVE (NEGATIVE); BLOOD/HEMOGLOBIN,URINE 1+ (NEGATIVE); GLUCOSE, URINE NEGATIVE (NEGATIVE); KETONES,URINE NEGATIVE (NEGATIVE); LEUKOCYTE ESTERASE ,URINE 2+ (NEGATIVE); NITRITES,URINE NEGATIVE (NEGATIVE); PROTEIN,URINE 2+ (NEGATIVE); UROBILINOGEN,URINE NORMAL (NORMAL)
[2018-02-23 10:01] LABS: APPEARANCE,URINE CLEAR (CLEAR); COLOR,URINE YELLOW (YELLOW)
[2018-02-23 10:02] LABS: BACTERIA,URINE NEGATIVE /HPF (NEGATIVE); MUCUS,URINE FEW /HPF (NEGATIVE); RBC,URINE 0-2 /HPF (NONE SEEN); SQUAMOUS EPITHELIAL CELL,UR NEGATIVE /HPF (NEGATIVE)
[2018-02-23 20:44] LABS: CRYPTOSPORIDIUM PARVUM ANTIGEN NEGATIVE (NEGATIVE); GIARDIA LAMBLIA ANTIGEN NEGATIVE (NEGATIVE); STOOL FOR WBC POSITIVE (NEGATIVE)
[2018-02-23 21:54] LABS: BILIRUBIN,URINE NEGATIVE (NEGATIVE); BLOOD/HEMOGLOBIN,URINE NEGATIVE (NEGATIVE); GLUCOSE, URINE NEGATIVE (NEGATIVE); KETONES,URINE NEGATIVE (NEGATIVE); LEUKOCYTE ESTERASE ,URINE 1+ (NEGATIVE); NITRITES,URINE NEGATIVE (NEGATIVE); PROTEIN,URINE 1+ (NEGATIVE); UROBILINOGEN,URINE NORMAL (NORMAL)
[2018-02-23 22:00] LABS: APPEARANCE,URINE CLEAR (CLEAR); BACTERIA,URINE NEGATIVE /HPF (NEGATIVE); COLOR,URINE YELLOW (YELLOW); RBC,URINE NONE SEEN /HPF (NONE SEEN); SQUAMOUS EPITHELIAL CELL,UR RARE /HPF (NEGATIVE)
[2018-02-24] MEDS: NS 1000 ML 1,000 ML IV SCH ×3 (01:00→21:20)
[2018-02-24] MEDS: FLAGYL IV PREMIX 500 MG BAG 500 MG/100 ML BAG IV SCH ×4 (02:57→21:20)
[2018-02-24 05:19] LABS: BASOPHILS % (AUTO) 0.3 % (0.2-1.0); EOSINOPHILS # (AUTO) 0.1 x10^3/uL (0.0-0.2); EOSINOPHILS % (AUTO) 1.8 % (0.9-2.9); HEMATOCRIT 37.5 % (42.0-54.0); HEMOGLOBIN 12.8 g/dL (13.5-18.0); LYMPHOCYTES # (AUTO) 0.8 X10^3/uL (1.3-2.9); LYMPHOCYTES % (AUTO) 19.1 % (21.0-51.0); MEAN CORPUSCULAR HEMOGLOBIN 30.2 pg (27.0-34.0); MEAN CORPUSCULAR HGB CONC 34.1 g/dL (33.0-35.0); MEAN CORPUSCULAR VOLUME 88.7 fL (80.0-100.0); MEAN PLATELET VOLUME 7.9 fL (7.4-11.0); MONOCYTES # (AUTO) 0.5 x10^3/uL (0.3-0.8); NEUTROPHILS % (AUTO) 67.8 % (42.0-75.0); PLATELET COUNT 154 X10^3/uL (150.0-450.0); RED BLOOD COUNT 4.23 X10^6/uL (4.7-6.0); RED CELL DISTRIBUTION WIDTH 13.3 % (11.6-16.5); WHITE BLOOD COUNT 4.4 X10^3/uL (3.6-10.0)
[2018-02-24 05:28] LABS: ALANINE AMINOTRANSFERASE 92 Units/L (12-78); ALBUMIN 2.4 g/dL (3.4-5.0); ALKALINE PHOSPHATASE 52 Units/L (46-116); ASPARTATE AMINO TRANSFERASE 90 Units/L (15-37); BLOOD UREA NITROGEN 10 mg/dL (7-18); CARBON DIOXIDE 26.5 mmol/L (21-32); CHLORIDE 100 mmol/L (98-107); COR CA(FOR HYPOALB) 9.3 mg/dL (8.5-10.1); CREATININE 1.26 mg/dL (0.70-1.30); SODIUM 135 mmol/L (136-145); TOTAL PROTEIN 6.3 g/dL (6.4-8.2); eGFR NON BLACK RACES > 60 (>60)
[2018-02-24] MEDS: ROCEPHIN VIAL 1 GRAM IVP SCH (09:20)
[2018-02-24] MEDS: CIPRO IV 400 MG PREMIX* 400 MG/200 ML IV.SOLN. IV SCH ×2 (10:28→20:06)
--- NOTE | 2018-02-24 14:55 | CT ---
Examination: CT of the sinuses. Clinical history: Fever, frontal sinus tenderness. Technique: Multiple axial images were obtained to evaluate the sinuses. Coronal reformatted images were obtained. Dose reduction techniques including automated exposure control (AEC) and adjustment of mA and kV were utilized. Comparison: None available. Findings: Minimal mucosal thickening is seen in the left maxillary sinus, consistent with minor inflammatory sinus disease. The remainder of the paranasal sinuses are clear. The ostiomeatal units are patent bilaterally. The nasal septum is minimally deviated to the right. Incidental note is made of small faustino bullosa associated with the middle turbinates bilaterally. There is a periapical lucency involving the number 14 molar in the left maxilla, probably representing periodontal or pulpal disease. Dental consult is recommended. No additional bony or soft tissue abnormality is noted. Impression: 1. Minor inflammatory sinus disease, as described above. 2. There is a periapical lucency involving the number 14 molar in the left maxilla, probably representing periodontal or pulpal disease. Dental consult is recommended. Reported By:
[2018-02-25] MEDS: FLAGYL IV PREMIX 500 MG BAG 500 MG/100 ML BAG IV SCH ×3 (03:00→14:47)
[2018-02-25] MEDS: TYLENOL 325 MG TAB PO PRN ×2 (04:00→15:58)
[2018-02-25] MEDS: TORADOL 30 MG VIAL IVP PRN (04:30)
[2018-02-25] MEDS: NS 1000 ML 1,000 ML IV SCH ×3 (05:36→16:45)
[2018-02-25 06:15] LABS: BASOPHILS % (AUTO) 0.4 % (0.2-1.0); EOSINOPHILS # (AUTO) 0.1 x10^3/uL (0.0-0.2); EOSINOPHILS % (AUTO) 1.4 % (0.9-2.9); HEMATOCRIT 34.1 % (42.0-54.0); HEMOGLOBIN 11.8 g/dL (13.5-18.0); LYMPHOCYTES # (AUTO) 0.8 X10^3/uL (1.3-2.9); LYMPHOCYTES % (AUTO) 16.9 % (21.0-51.0); MEAN CORPUSCULAR HEMOGLOBIN 30.2 pg (27.0-34.0); MEAN CORPUSCULAR HGB CONC 34.7 g/dL (33.0-35.0); MEAN PLATELET VOLUME 7.9 fL (7.4-11.0); MONOCYTES # (AUTO) 0.4 x10^3/uL (0.3-0.8); MONOCYTES % (AUTO) 9.3 % (0.0-13.0); NEUTROPHILS # (AUTO) 3.2 x10^3/uL (2.2-4.8); PLATELET COUNT 162 X10^3/uL (150.0-450.0); RED BLOOD COUNT 3.91 X10^6/uL (4.7-6.0); RED CELL DISTRIBUTION WIDTH 13.5 % (11.6-16.5); WHITE BLOOD COUNT 4.4 X10^3/uL (3.6-10.0)
[2018-02-25 06:34] LABS: ALANINE AMINOTRANSFERASE 105 Units/L (12-78); ALBUMIN 2.3 g/dL (3.4-5.0); ALKALINE PHOSPHATASE 49 Units/L (46-116); ASPARTATE AMINO TRANSFERASE 116 Units/L (15-37); BLOOD UREA NITROGEN 13 mg/dL (7-18); CALCIUM 7.7 mg/dL (8.5-10.1); CARBON DIOXIDE 22.8 mmol/L (21-32); CHLORIDE 102 mmol/L (98-107); COR CA(FOR HYPOALB) 9.1 mg/dL (8.5-10.1); CREATININE 1.27 mg/dL (0.70-1.30); SODIUM 135 mmol/L (136-145); eGFR NON BLACK RACES > 60 (>60)
[2018-02-25] MEDS: CIPRO IV 400 MG PREMIX* 400 MG/200 ML IV.SOLN. IV SCH (08:21)
[2018-02-25] MEDS: ROCEPHIN VIAL 1 GRAM IVP SCH (08:21)
[2018-02-25] MEDS ORDERED: FLONASE NASAL SPRAY ENOSTRIL SCH (10:00)
[2018-02-25] MEDS ORDERED: NS 100 ML IV 100 ML IV ONE (13:29)
--- NOTE | 2018-02-25 14:08 | CT ---
HISTORY: Fever Study: CT abdomen pelvis with contrast Comparison: 02/20/2018 Technique: Axial post-contrast images with coronal and sagittal reformats. Dose reduction procedures were used with mA/kv adjusted for body size. Findings: The lung bases are clear. The liver, spleen, adrenal glands, and pancreas are within normal limits. No opaque stones are visible within the gallbladder. The kidneys are unobstructed and without stones or masses. No ureteral calculi are identified. The abdominal aorta is normal. No significant intraperitoneal or retroperitoneal lymphadenopathy is identified. There are no findings suggestive of diverticulitis or colitis. The small bowel appears within normal limits on this examination. The appendix is not identified with absolute certainty. There are no secondary signs of appendicitis present. Examination of the pelvis demonstrated no evidence for pelvic masses, pelvic fluid, or pelvic lymphadenopathy. No bladder abnormality is identified. No lytic or blastic skeletal lesions are identified. IMPRESSION: No significant abnormality identified Reported By:
--- NOTE | 2018-02-25 18:40 | PCM.PROG ---
Progress Note - Progress Note for Day of Date of Exam: 02/21/18 - Subjective Subjective: 22 BM ER ADMISSION WITH FEBRILE ILLNESS AND ENTERITIS. PT CURRENTLY ON IV ATBX WITH STOOL STUDIES NEGATIVE PT REPORTS IMPROVING N/V, MILD ABDOMINAL PAIN, IMPROVED APPETITE. PT CONTINUES WITH FEVER UP TO 103 WITH LOOSE STOOL. CREAT IMPROVING SLIGHTLY. PT CONTINUES WITH FEVER, BLOOD CULTURES COLLECTED ON ADMISSION NEGATIVE AT THIS TIME. BLOOD CULTURES REPEATED AND CT ABD PELVIS ON 02/20 WITH CONTINUED ENTERITIS. - Past Medical Family Social History Past Med/Fam/Surg Hx: No changes since H&P Allergies: Allergies No Known Drug Allergies Allergy (Verified 02/17/18 11:56) - Review of Systems ROS: No change since H&P - Vital Signs and I&O's Vital Signs: Temperature 100.6 F Pulse Rate [Right Brachial] 79 Pulse Rate [Apical] 79 Pulse Rate 106 Respiratory Rate 20 Blood Pressure [Right Arm] 127/76 Blood Pressure [Left Arm] 143/81 Blood Pressure 123/76 O2 Sat by Pulse Oximetry 99 Intake and Output: Intake & Output 02/23/18 02/24/18 02/25/18 02/26/18 11:59 11:59 11:59 11:59 Intake Total 3300 / 3300 2940 / 2940 5296 / 5296 480 / 480 Balance 3300 / 3300 2940 / 2940 5296 / 5296 480 / 480 - Physical Exam Oriented: Normal Eyes: Normal Ear: Normal Nose: Normal Throat: Normal Respiratory: Normal Cardiovascular: Normal : Normal Auscultation: Bowel Sounds: Normal Tenderness: Diffuse, Mild Skin: Normal Musculoskeletal: Normal Psychiatric: Normal Mood Description: Calm Speech Pattern: Clear, Appropriate - Laboratory and Diagnostics Result Diagrams: 02/25/18 05:01 02/25/18 05:01 Labs: 02/23/18 20:12 Stool Stool Culture - Preliminary 02/23/18 20:12 Stool - Final 02/17/18 15:45 Blood Blood Culture - Final 02/17/18 15:15 Blood Blood Culture - Final 02/21/18 09:00 Blood Blood Culture - Preliminary 02/21/18 09:08 Blood Blood Culture - Preliminary 02/20/18 18:06 Urine,Clean Catch Urine Culture - Final 02/18/18 20:33 Stool Stool Culture - Final 02/18/18 20:33 Stool - Final Laboratory WBC 4.4 X10^3/uL (3.6-10.0) 02/25/18 05:01 RBC 3.91 X10^6/uL (4.7-6.0) L 02/25/18 05:01 Hgb 11.8 g/dL (13.5-18.0) L 02/25/18 05:01 Hct 34.1 % (42.0-54.0) L 02/25/18 05:01 MCV 87.0 fL (80.0-100.0) 02/25/18 05:01 MCH 30.2 pg (27.0-34.0) 02/25/18 05:01 MCHC 34.7 g/dL (33.0-35.0) 02/25/18 05:01 RDW 13.5 % (11.6-16.5) 02/25/18 05:01 Plt Count 162 X10^3/uL (150.0-450.0) 02/25/18 05:01 MPV 7.9 fL (7.4-11.0) 02/25/18 05:01 Neut % (Auto) 72.0 % (42.0-75.0) 02/25/18 05:01 Lymph % (Auto) 16.9 % (21.0-51.0) L 02/25/18 05:01 [place] % (Auto) 9.3 % (0.0-13.0) 02/25/18 05:01 Eos % (Auto) 1.4 % (0.9-2.9) 02/25/18 05:01 Baso % (Auto) 0.4 % (0.2-1.0) 02/25/18 05:01 Neut # (Auto) 3.2 x10^3/uL (2.2-4.8) 02/25/18 05:01 Lymph # (Auto) 0.8 X10^3/uL (1.3-2.9) L 02/25/18 05:01 [place] # (Auto) 0.4 x10^3/uL (0.3-0.8) 02/25/18 05:01 Eos # (Auto) 0.1 x10^3/uL (0.0-0.2) 02/25/18 05:01 Baso # (Auto) 0.0 X10^3/uL (0.0-0.1) 02/25/18 05:01 Absolute Nucleated RBC 0.0 /100WBC 02/25/18 05:01 ESR 29 MM/HOUR (0-15) H 02/24/18 14:09 Sodium 135 mmol/L (136-145) L 02/25/18 05:01 Corrected Sodium TNP 02/25/18 05:01 Potassium 4.1 mmol/L (3.5-5.1) 02/25/18 05:01 Chloride 102 mmol/L (98-107) 02/25/18 05:01 Carbon Dioxide 22.8 mmol/L (21-32) 02/25/18 05:01 BUN 13 mg/dL (7-18) 02/25/18 05:01 Creatinine 1.27 mg/dL (0.70-1.30) 02/25/18 05:01 Est GFR (MDRD) Af Amer > 60 (>60) 02/25/18 05:01 Est GFR (MDRD) Non-Af > 60 (>60) 02/25/18 05:01 Glucose 105 mg/dL (65-99) H 02/25/18 05:01 Calcium 7.7 mg/dL (8.5-10.1) L 02/25/18 05:01 Corrected Calcium 9.1 mg/dL (8.5-10.1) 02/25/18 05:01 Total Bilirubin 0.20 mg/dL (0.2-1.0) 02/25/18 05:01 AST 116 Units/L (15-37) H 02/25/18 05:01 ALT 105 Units/L (12-78) H 02/25/18 05:01 Alkaline Phosphatase 49 Units/L (46-116) 02/25/18 05:01 C-Reactive Protein 39.10 mg/L (0-3.0) H 02/24/18 14:09 Total Protein 6.0 g/dL (6.4-8.2) L 02/25/18 05:01 Albumin 2.3 g/dL (3.4-5.0) L 02/25/18 05:01 Globulin 3.7 g/dL (2.5-4.5) 02/25/18 05:01 Albumin/Globulin Ratio 0.6 Ratio (1.1-2.1) L 02/25/18 05:01 Amylase 89 Units/L (25-115) 02/17/18 13:36 Lipase 118 Units/L (73-393) 02/17/18 13:36 Specimen Type Clean catch urine 02/23/18 21:35 Urine Color Yellow (YELLOW) 02/23/18 21:35 Urine Appearance Clear (CLEAR) 02/23/18 21:35 Urine pH 7.0 (5.0 - 8.0) 02/23/18 21:35 Ur Specific [place] 1.010 (1.000-1.030) 02/23/18 21:35 Urine Protein 1+ (NEGATIVE) 02/23/18 21:35 Urine Glucose (UA) Negative (NEGATIVE) 02/23/18 21:35 Urine Ketones Negative (NEGATIVE) 02/23/18 21:35 Urine Occult Blood Negative (NEGATIVE) 02/23/18 21:35 Urine Nitrite Negative (NEGATIVE) 02/23/18 21:35 Urine Bilirubin Negative (NEGATIVE) 02/23/18 21:35 Urine Urobilinogen Normal (NORMAL) 02/23/18 21:35 Ur Leukocyte Esterase 1+ (NEGATIVE) 02/23/18 21:35 Urine RBC None seen /HPF (NONE SEEN) 02/23/18 21:35 Urine WBC 0-2 /HPF (NONE SEEN) 02/23/18 21:35 Ur Squamous Epith Cells Rare /HPF (NEGATIVE) 02/23/18 21:35 Amorphous Sediment 1+ /HPF (NEGATIVE) 02/17/18 13:47 Urine Bacteria Negative /HPF (NEGATIVE) 02/23/18 21:35 Urine Mucus Few /HPF (NEGATIVE) 02/23/18 09:45 Ur Culture Indicated? No/not indicated 02/23/18 21:35 Stool Description 4g,brown/yellow,soft 02/23/18 20:12 Stl Occult Blood (IFOB) Negative (NEGATIVE) 02/23/18 20:12 Stool for White Cells Positive (NEGATIVE) A 02/23/18 20:12 Stl C. diff Tox B Gene Negative (NEGATIVE) 02/23/18 20:12 Stl C. diff 027-NAP1-BI Negative (NEGATIVE) 02/23/18 20:12 Urine Opiates Screen Negative (NEG=<300) 02/17/18 13:48 Urine Methadone Screen Negative (NEG=<300) 02/17/18 13:48 Ur Barbiturates Screen Negative (NEG=<200) 02/17/18 13:48 Ur Phencyclidine Scrn Negative (NEG=<25) 02/17/18 13:48 Ur Amphetamines Screen Negative (NEG=<1000) 02/17/18 13:48 U Benzodiazepines Scrn Negative (NEG=<200) 02/17/18 13:48 Urine Cocaine Screen Negative (NEG=<300) 02/17/18 13:48 U Marijuana (THC) Screen Negative (NEG=<50) 02/17/18 13:48 Cryptosporid parvum Ag Negative (NEGATIVE) 02/23/18 20:12 Giardia lamblia Ag Negative (NEGATIVE) 02/23/18 20:12 Influenza Type A (PCR) Negative (NEGATIVE) 02/17/18 12:15 Influenza Type B (PCR) Negative (NEGATIVE) 02/17/18 12:15 S. pyogenes (TEM-PCR) Not detected (NOT DETECT) 02/17/18 12:15 - Plan (1) Fever Status: Acute Plan: AM LABS CBC CMP. STOOL STUDIES. GENTLE IV HYDRATION, IV ATBX. REPEAT AM LABS, ENCOURAGE ORAL HYDRATION (2) Enteritis Status: Acute Plan: IV ATBX, STOOL STUDIES (3) Abdominal pain Status: Acute (4) Dehydration Status: Acute Plan: GENTLE ORAL AND IV HYDRATION
--- NOTE | 2018-02-25 18:42 | PCM.PROG ---
Progress Note - Progress Note for Day of Date of Exam: 02/22/18 - Subjective Subjective: 22 BM ER ADMISSION WITH FEBRILE ILLNESS AND ENTERITIS. PT CURRENTLY ON IV ATBX WITH STOOL STUDIES NEGATIVE PT REPORTS IMPROVING N/V, MILD ABDOMINAL PAIN, IMPROVED APPETITE. PT CONTINUES WITH FEVER UP TO 103 WITH LOOSE STOOL. RENAL FUNCTION RETURNED TO NORMAL, WBC 5.0. PT CO MILD FRONTAL [place], N/V AT THIS TIME. REPEAT BLOOD CULTURES NEGATIVE. - Past Medical Family Social History Past Med/Fam/Surg Hx: No changes since H&P Allergies: Allergies No Known Drug Allergies Allergy (Verified 02/17/18 11:56) - Review of Systems ROS: No change since H&P - Vital Signs and I&O's Vital Signs: Temperature 100.6 F Pulse Rate [Right Brachial] 79 Pulse Rate [Apical] 79 Pulse Rate 106 Respiratory Rate 20 Blood Pressure [Right Arm] 127/76 Blood Pressure [Left Arm] 143/81 Blood Pressure 123/76 O2 Sat by Pulse Oximetry 99 Intake and Output: Intake & Output 02/23/18 02/24/18 02/25/18 02/26/18 11:59 11:59 11:59 11:59 Intake Total 3300 / 3300 2940 / 2940 5296 / 5296 480 / 480 Balance 3300 / 3300 2940 / 2940 5296 / 5296 480 / 480 - Physical Exam Oriented: Normal Eyes: Normal Ear: Normal Nose: Normal Throat: Normal Respiratory: Normal Cardiovascular: Normal : Normal Auscultation: Bowel Sounds: Increased Tenderness: Normal, Mild Skin: Normal Musculoskeletal: Normal Psychiatric: Normal Mood Description: Calm Speech Pattern: Clear, Appropriate - Laboratory and Diagnostics Result Diagrams: 02/25/18 05:01 02/25/18 05:01 Labs: 02/23/18 20:12 Stool Stool Culture - Preliminary 02/23/18 20:12 Stool - Final 02/17/18 15:45 Blood Blood Culture - Final 02/17/18 15:15 Blood Blood Culture - Final 02/21/18 09:00 Blood Blood Culture - Preliminary 02/21/18 09:08 Blood Blood Culture - Preliminary 02/20/18 18:06 Urine,Clean Catch Urine Culture - Final 02/18/18 20:33 Stool Stool Culture - Final 02/18/18 20:33 Stool - Final Laboratory WBC 4.4 X10^3/uL (3.6-10.0) 02/25/18 05:01 RBC 3.91 X10^6/uL (4.7-6.0) L 02/25/18 05:01 Hgb 11.8 g/dL (13.5-18.0) L 02/25/18 05:01 Hct 34.1 % (42.0-54.0) L 02/25/18 05:01 MCV 87.0 fL (80.0-100.0) 02/25/18 05:01 MCH 30.2 pg (27.0-34.0) 02/25/18 05:01 MCHC 34.7 g/dL (33.0-35.0) 02/25/18 05:01 RDW 13.5 % (11.6-16.5) 02/25/18 05:01 Plt Count 162 X10^3/uL (150.0-450.0) 02/25/18 05:01 MPV 7.9 fL (7.4-11.0) 02/25/18 05:01 Neut % (Auto) 72.0 % (42.0-75.0) 02/25/18 05:01 Lymph % (Auto) 16.9 % (21.0-51.0) L 02/25/18 05:01 [place] % (Auto) 9.3 % (0.0-13.0) 02/25/18 05:01 Eos % (Auto) 1.4 % (0.9-2.9) 02/25/18 05:01 Baso % (Auto) 0.4 % (0.2-1.0) 02/25/18 05:01 Neut # (Auto) 3.2 x10^3/uL (2.2-4.8) 02/25/18 05:01 Lymph # (Auto) 0.8 X10^3/uL (1.3-2.9) L 02/25/18 05:01 [place] # (Auto) 0.4 x10^3/uL (0.3-0.8) 02/25/18 05:01 Eos # (Auto) 0.1 x10^3/uL (0.0-0.2) 02/25/18 05:01 Baso # (Auto) 0.0 X10^3/uL (0.0-0.1) 02/25/18 05:01 Absolute Nucleated RBC 0.0 /100WBC 02/25/18 05:01 ESR 29 MM/HOUR (0-15) H 02/24/18 14:09 Sodium 135 mmol/L (136-145) L 02/25/18 05:01 Corrected Sodium TNP 02/25/18 05:01 Potassium 4.1 mmol/L (3.5-5.1) 02/25/18 05:01 Chloride 102 mmol/L (98-107) 02/25/18 05:01 Carbon Dioxide 22.8 mmol/L (21-32) 02/25/18 05:01 BUN 13 mg/dL (7-18) 02/25/18 05:01 Creatinine 1.27 mg/dL (0.70-1.30) 02/25/18 05:01 Est GFR (MDRD) Af Amer > 60 (>60) 02/25/18 05:01 Est GFR (MDRD) Non-Af > 60 (>60) 02/25/18 05:01 Glucose 105 mg/dL (65-99) H 02/25/18 05:01 Calcium 7.7 mg/dL (8.5-10.1) L 02/25/18 05:01 Corrected Calcium 9.1 mg/dL (8.5-10.1) 02/25/18 05:01 Total Bilirubin 0.20 mg/dL (0.2-1.0) 02/25/18 05:01 AST 116 Units/L (15-37) H 02/25/18 05:01 ALT 105 Units/L (12-78) H 02/25/18 05:01 Alkaline Phosphatase 49 Units/L (46-116) 02/25/18 05:01 C-Reactive Protein 39.10 mg/L (0-3.0) H 02/24/18 14:09 Total Protein 6.0 g/dL (6.4-8.2) L 02/25/18 05:01 Albumin 2.3 g/dL (3.4-5.0) L 02/25/18 05:01 Globulin 3.7 g/dL (2.5-4.5) 02/25/18 05:01 Albumin/Globulin Ratio 0.6 Ratio (1.1-2.1) L 02/25/18 05:01 Amylase 89 Units/L (25-115) 02/17/18 13:36 Lipase 118 Units/L (73-393) 02/17/18 13:36 Specimen Type Clean catch urine 02/23/18 21:35 Urine Color Yellow (YELLOW) 02/23/18 21:35 Urine Appearance Clear (CLEAR) 02/23/18 21:35 Urine pH 7.0 (5.0 - 8.0) 02/23/18 21:35 Ur Specific [place] 1.010 (1.000-1.030) 02/23/18 21:35 Urine Protein 1+ (NEGATIVE) 02/23/18 21:35 Urine Glucose (UA) Negative (NEGATIVE) 02/23/18 21:35 Urine Ketones Negative (NEGATIVE) 02/23/18 21:35 Urine Occult Blood Negative (NEGATIVE) 02/23/18 21:35 Urine Nitrite Negative (NEGATIVE) 02/23/18 21:35 Urine Bilirubin Negative (NEGATIVE) 02/23/18 21:35 Urine Urobilinogen Normal (NORMAL) 02/23/18 21:35 Ur Leukocyte Esterase 1+ (NEGATIVE) 02/23/18 21:35 Urine RBC None seen /HPF (NONE SEEN) 02/23/18 21:35 Urine WBC 0-2 /HPF (NONE SEEN) 02/23/18 21:35 Ur Squamous Epith Cells Rare /HPF (NEGATIVE) 02/23/18 21:35 Amorphous Sediment 1+ /HPF (NEGATIVE) 02/17/18 13:47 Urine Bacteria Negative /HPF (NEGATIVE) 02/23/18 21:35 Urine Mucus Few /HPF (NEGATIVE) 02/23/18 09:45 Ur Culture Indicated? No/not indicated 02/23/18 21:35 Stool Description 4g,brown/yellow,soft 02/23/18 20:12 Stl Occult Blood (IFOB) Negative (NEGATIVE) 02/23/18 20:12 Stool for White Cells Positive (NEGATIVE) A 02/23/18 20:12 Stl C. diff Tox B Gene Negative (NEGATIVE) 02/23/18 20:12 Stl C. diff [id number] Negative (NEGATIVE) 02/23/18 20:12 Urine Opiates Screen Negative (NEG=<300) 02/17/18 13:48 Urine Methadone Screen Negative (NEG=<300) 02/17/18 13:48 Ur Barbiturates Screen Negative (NEG=<200) 02/17/18 13:48 Ur Phencyclidine Scrn Negative (NEG=<25) 02/17/18 13:48 Ur Amphetamines Screen Negative (NEG=<1000) 02/17/18 13:48 U Benzodiazepines Scrn Negative (NEG=<200) 02/17/18 13:48 Urine Cocaine Screen Negative (NEG=<300) 02/17/18 13:48 U Marijuana (THC) Screen Negative (NEG=<50) 02/17/18 13:48 Cryptosporid parvum Ag Negative (NEGATIVE) 02/23/18 20:12 Giardia lamblia Ag Negative (NEGATIVE) 02/23/18 20:12 Influenza Type A (PCR) Negative (NEGATIVE) 02/17/18 12:15 Influenza Type B (PCR) Negative (NEGATIVE) 02/17/18 12:15 S. pyogenes (TEM-PCR) Not detected (NOT DETECT) 02/17/18 12:15 - Plan (1) Fever Status: Acute Plan: AM LABS CBC CMP. STOOL STUDIES. GENTLE IV HYDRATION, IV ATBX. REPEAT AM LABS, ENCOURAGE ORAL HYDRATION (2) Enteritis Status: Acute Plan: IV ATBX, STOOL STUDIES (3) Abdominal pain Status: Acute (4) Dehydration Status: Acute Plan: GENTLE ORAL AND IV HYDRATION
--- NOTE | 2018-02-25 18:44 | PCM.PROG ---
Progress Note - Progress Note for Day of Date of Exam: 02/23/18 - Subjective Subjective: 22 BM ER ADMISSION WITH FEBRILE ILLNESS AND ENTERITIS. PT CURRENTLY ON IV ATBX WITH STOOL STUDIES NEGATIVE PT REPORTS IMPROVING N/V, AND IMPROVED APPETITE. PT CONTINUES WITH FEVER UP TO 103 WITH LOOSE STOOL. PT HEAD TO TOE EXAM WITH MILD SINUS TENDERNESS WITH INFERIOR TURBINATES RED AND ENLARGED. PT CO MILD GEORGES. WBC 4.4. PLAN TO REPEAT STOOL CULTURES AND UC, HIV, CMV, MONO TITERS, REPEAT CXR SED RATE AND CRP. ENCOURAGE ORAL HYDRATION - Past Medical Family Social History Past Med/Fam/Surg Hx: No changes since H&P Allergies: Allergies No Known Drug Allergies Allergy (Verified 02/17/18 11:56) - Review of Systems ROS: No change since H&P - Vital Signs and I&O's Vital Signs: Temperature 100.6 F Pulse Rate [Right Brachial] 79 Pulse Rate [Apical] 79 Pulse Rate 106 Respiratory Rate 20 Blood Pressure [Right Arm] 127/76 Blood Pressure [Left Arm] 143/81 Blood Pressure 123/76 O2 Sat by Pulse Oximetry 99 Intake and Output: Intake & Output 02/23/18 02/24/18 02/25/18 02/26/18 11:59 11:59 11:59 11:59 Intake Total 3300 / 3300 2940 / 2940 5296 / 5296 480 / 480 Balance 3300 / 3300 2940 / 2940 5296 / 5296 480 / 480 - Physical Exam Oriented: Normal Eyes: Normal Ear: Normal Nose: Normal Throat: Normal Respiratory: Normal Cardiovascular: Normal : Normal Auscultation: Bowel Sounds: Increased Tenderness: Normal, Mild Skin: Normal Musculoskeletal: Normal Psychiatric: Normal Mood Description: Calm Speech Pattern: Clear, Appropriate - Laboratory and Diagnostics Result Diagrams: 02/25/18 05:01 02/25/18 05:01 Labs: 02/23/18 20:12 Stool Stool Culture - Preliminary 02/23/18 20:12 Stool - Final 02/17/18 15:45 Blood Blood Culture - Final 02/17/18 15:15 Blood Blood Culture - Final 02/21/18 09:00 Blood Blood Culture - Preliminary 02/21/18 09:08 Blood Blood Culture - Preliminary 02/20/18 18:06 Urine,Clean Catch Urine Culture - Final 02/18/18 20:33 Stool Stool Culture - Final 02/18/18 20:33 Stool - Final Laboratory WBC 4.4 X10^3/uL (3.6-10.0) 02/25/18 05:01 RBC 3.91 X10^6/uL (4.7-6.0) L 02/25/18 05:01 Hgb 11.8 g/dL (13.5-18.0) L 02/25/18 05:01 Hct 34.1 % (42.0-54.0) L 02/25/18 05:01 MCV 87.0 fL (80.0-100.0) 02/25/18 05:01 MCH 30.2 pg (27.0-34.0) 02/25/18 05:01 MCHC 34.7 g/dL (33.0-35.0) 02/25/18 05:01 RDW 13.5 % (11.6-16.5) 02/25/18 05:01 Plt Count 162 X10^3/uL (150.0-450.0) 02/25/18 05:01 MPV 7.9 fL (7.4-11.0) 02/25/18 05:01 Neut % (Auto) 72.0 % (42.0-75.0) 02/25/18 05:01 Lymph % (Auto) 16.9 % (21.0-51.0) L 02/25/18 05:01 [place] % (Auto) 9.3 % (0.0-13.0) 02/25/18 05:01 Eos % (Auto) 1.4 % (0.9-2.9) 02/25/18 05:01 Baso % (Auto) 0.4 % (0.2-1.0) 02/25/18 05:01 Neut # (Auto) 3.2 x10^3/uL (2.2-4.8) 02/25/18 05:01 Lymph # (Auto) 0.8 X10^3/uL (1.3-2.9) L 02/25/18 05:01 [place] # (Auto) 0.4 x10^3/uL (0.3-0.8) 02/25/18 05:01 Eos # (Auto) 0.1 x10^3/uL (0.0-0.2) 02/25/18 05:01 Baso # (Auto) 0.0 X10^3/uL (0.0-0.1) 02/25/18 05:01 Absolute Nucleated RBC 0.0 /100WBC 02/25/18 05:01 ESR 29 MM/HOUR (0-15) H 02/24/18 14:09 Sodium 135 mmol/L (136-145) L 02/25/18 05:01 Corrected Sodium TNP 02/25/18 05:01 Potassium 4.1 mmol/L (3.5-5.1) 02/25/18 05:01 Chloride 102 mmol/L (98-107) 02/25/18 05:01 Carbon Dioxide 22.8 mmol/L (21-32) 02/25/18 05:01 BUN 13 mg/dL (7-18) 02/25/18 05:01 Creatinine 1.27 mg/dL (0.70-1.30) 02/25/18 05:01 Est GFR (MDRD) Af Amer > 60 (>60) 02/25/18 05:01 Est GFR (MDRD) Non-Af > 60 (>60) 02/25/18 05:01 Glucose 105 mg/dL (65-99) H 02/25/18 05:01 Calcium 7.7 mg/dL (8.5-10.1) L 02/25/18 05:01 Corrected Calcium 9.1 mg/dL (8.5-10.1) 02/25/18 05:01 Total Bilirubin 0.20 mg/dL (0.2-1.0) 02/25/18 05:01 AST 116 Units/L (15-37) H 02/25/18 05:01 ALT 105 Units/L (12-78) H 02/25/18 05:01 Alkaline Phosphatase 49 Units/L (46-116) 02/25/18 05:01 C-Reactive Protein 39.10 mg/L (0-3.0) H 02/24/18 14:09 Total Protein 6.0 g/dL (6.4-8.2) L 02/25/18 05:01 Albumin 2.3 g/dL (3.4-5.0) L 02/25/18 05:01 Globulin 3.7 g/dL (2.5-4.5) 02/25/18 05:01 Albumin/Globulin Ratio 0.6 Ratio (1.1-2.1) L 02/25/18 05:01 Amylase 89 Units/L (25-115) 02/17/18 13:36 Lipase 118 Units/L (73-393) 02/17/18 13:36 Specimen Type Clean catch urine 02/23/18 21:35 Urine Color Yellow (YELLOW) 02/23/18 21:35 Urine Appearance Clear (CLEAR) 02/23/18 21:35 Urine pH 7.0 (5.0 - 8.0) 02/23/18 21:35 Ur Specific [place] 1.010 (1.000-1.030) 02/23/18 21:35 Urine Protein 1+ (NEGATIVE) 02/23/18 21:35 Urine Glucose (UA) Negative (NEGATIVE) 02/23/18 21:35 Urine Ketones Negative (NEGATIVE) 02/23/18 21:35 Urine Occult Blood Negative (NEGATIVE) 02/23/18 21:35 Urine Nitrite Negative (NEGATIVE) 02/23/18 21:35 Urine Bilirubin Negative (NEGATIVE) 02/23/18 21:35 Urine Urobilinogen Normal (NORMAL) 02/23/18 21:35 Ur Leukocyte Esterase 1+ (NEGATIVE) 02/23/18 21:35 Urine RBC None seen /HPF (NONE SEEN) 02/23/18 21:35 Urine WBC 0-2 /HPF (NONE SEEN) 02/23/18 21:35 Ur Squamous Epith Cells Rare /HPF (NEGATIVE) 02/23/18 21:35 Amorphous Sediment 1+ /HPF (NEGATIVE) 02/17/18 13:47 Urine Bacteria Negative /HPF (NEGATIVE) 02/23/18 21:35 Urine Mucus Few /HPF (NEGATIVE) 02/23/18 09:45 Ur Culture Indicated? No/not indicated 02/23/18 21:35 Stool Description 4g,brown/yellow,soft 02/23/18 20:12 Stl Occult Blood (IFOB) Negative (NEGATIVE) 02/23/18 20:12 Stool for White Cells Positive (NEGATIVE) A 02/23/18 20:12 Stl C. diff Tox B Gene Negative (NEGATIVE) 02/23/18 20:12 Stl C. diff 027-NAP1-BI Negative (NEGATIVE) 02/23/18 20:12 Urine Opiates Screen Negative (NEG=<300) 02/17/18 13:48 Urine Methadone Screen Negative (NEG=<300) 02/17/18 13:48 Ur Barbiturates Screen Negative (NEG=<200) 02/17/18 13:48 Ur Phencyclidine Scrn Negative (NEG=<25) 02/17/18 13:48 Ur Amphetamines Screen Negative (NEG=<1000) 02/17/18 13:48 U Benzodiazepines Scrn Negative (NEG=<200) 02/17/18 13:48 Urine Cocaine Screen Negative (NEG=<300) 02/17/18 13:48 U Marijuana (THC) Screen Negative (NEG=<50) 02/17/18 13:48 Cryptosporid parvum Ag Negative (NEGATIVE) 02/23/18 20:12 Giardia lamblia Ag Negative (NEGATIVE) 02/23/18 20:12 Influenza Type A (PCR) Negative (NEGATIVE) 02/17/18 12:15 Influenza Type B (PCR) Negative (NEGATIVE) 02/17/18 12:15 S. pyogenes (TEM-PCR) Not detected (NOT DETECT) 02/17/18 12:15 - Plan (1) Fever Status: Acute Plan: AM LABS CBC CMP. STOOL STUDIES. GENTLE IV HYDRATION, IV ATBX. REPEAT AM LABS, ENCOURAGE ORAL HYDRATION (2) Enteritis Status: Acute Plan: IV ATBX, STOOL STUDIES (3) Abdominal pain Status: Acute (4) Dehydration Status: Acute Plan: GENTLE ORAL AND IV HYDRATION
--- NOTE | 2018-02-25 18:48 | PCM.PROG ---
Progress Note - Progress Note for Day of Date of Exam: 02/24/18 - Subjective Subjective: 22 BM ER ADMISSION WITH FEBRILE ILLNESS AND ENTERITIS. PT CURRENTLY ON IV ATBX WITH STOOL STUDIES NEGATIVE PT REPORTS IMPROVING N/V, AND IMPROVED APPETITE. PT CONTINUES WITH FEVER UP TO [address] OF SINUS ORDERED, STARTED ON FLONASE BID, ABDOMEN NON TENDER ON EXAM. ESR COLLECTED THIS AM 29. HIV AND VIRAL TITERS PENDING. PT HAS NOT BEEN AFEBRILE FOR > 12HR SINCE ADMISSION. PLAN TO REPEAT ABD CT AND AM LABS. PT IS CURRENTLY INCARCERATED AND SUSPECT CONTAGIOUS ILLNESS DISCUSSED THIS WITH PATIENT AND FACILITY MEDICAL STAFF - Past Medical Family Social History Past Med/Fam/Surg Hx: No changes since H&P Allergies: Allergies No Known Drug Allergies Allergy (Verified 02/17/18 11:56) - Review of Systems ROS: No change since H&P - Vital Signs and I&O's Vital Signs: Temperature 100.6 F Pulse Rate [Right Brachial] 79 Pulse Rate [Apical] 79 Pulse Rate 106 Respiratory Rate 20 Blood Pressure [Right Arm] 127/76 Blood Pressure [Left Arm] 143/81 Blood Pressure 123/76 O2 Sat by Pulse Oximetry 99 Intake and Output: Intake & Output 02/23/18 02/24/18 02/25/18 02/26/18 11:59 11:59 11:59 11:59 Intake Total 3300 / 3300 2940 / 2940 5296 / 5296 480 / 480 Balance 3300 / 3300 2940 / 2940 5296 / 5296 480 / 480 - Physical Exam Oriented: Normal Eyes: Normal Ear: Normal Nose: Normal Throat: Normal Respiratory: Normal Cardiovascular: Normal : Normal Auscultation: Bowel Sounds: Increased Tenderness: Normal, Mild Skin: Normal Musculoskeletal: Normal Psychiatric: Normal Mood Description: Calm Speech Pattern: Clear, Appropriate - Laboratory and Diagnostics Result Diagrams: 02/25/18 05:01 02/25/18 05:01 Labs: 02/23/18 20:12 Stool Stool Culture - Preliminary 02/23/18 20:12 Stool - Final 02/17/18 15:45 Blood Blood Culture - Final 02/17/18 15:15 Blood Blood Culture - Final 02/21/18 09:00 Blood Blood Culture - Preliminary 02/21/18 09:08 Blood Blood Culture - Preliminary 02/20/18 18:06 Urine,Clean Catch Urine Culture - Final 02/18/18 20:33 Stool Stool Culture - Final 02/18/18 20:33 Stool - Final Laboratory WBC 4.4 X10^3/uL (3.6-10.0) 02/25/18 05:01 RBC 3.91 X10^6/uL (4.7-6.0) L 02/25/18 05:01 Hgb 11.8 g/dL (13.5-18.0) L 02/25/18 05:01 Hct 34.1 % (42.0-54.0) L 02/25/18 05:01 MCV 87.0 fL (80.0-100.0) 02/25/18 05:01 MCH 30.2 pg (27.0-34.0) 02/25/18 05:01 MCHC 34.7 g/dL (33.0-35.0) 02/25/18 05:01 RDW 13.5 % (11.6-16.5) 02/25/18 05:01 Plt Count 162 X10^3/uL (150.0-450.0) 02/25/18 05:01 MPV 7.9 fL (7.4-11.0) 02/25/18 05:01 Neut % (Auto) 72.0 % (42.0-75.0) 02/25/18 05:01 Lymph % (Auto) 16.9 % (21.0-51.0) L 02/25/18 05:01 [place] % (Auto) 9.3 % (0.0-13.0) 02/25/18 05:01 Eos % (Auto) 1.4 % (0.9-2.9) 02/25/18 05:01 Baso % (Auto) 0.4 % (0.2-1.0) 02/25/18 05:01 Neut # (Auto) 3.2 x10^3/uL (2.2-4.8) 02/25/18 05:01 Lymph # (Auto) 0.8 X10^3/uL (1.3-2.9) L 02/25/18 05:01 [place] # (Auto) 0.4 x10^3/uL (0.3-0.8) 02/25/18 05:01 Eos # (Auto) 0.1 x10^3/uL (0.0-0.2) 02/25/18 05:01 Baso # (Auto) 0.0 X10^3/uL (0.0-0.1) 02/25/18 05:01 Absolute Nucleated RBC 0.0 /100WBC 02/25/18 05:01 ESR 29 MM/HOUR (0-15) H 02/24/18 14:09 Sodium 135 mmol/L (136-145) L 02/25/18 05:01 Corrected Sodium TNP 02/25/18 05:01 Potassium 4.1 mmol/L (3.5-5.1) 02/25/18 05:01 Chloride 102 mmol/L (98-107) 02/25/18 05:01 Carbon Dioxide 22.8 mmol/L (21-32) 02/25/18 05:01 BUN 13 mg/dL (7-18) 02/25/18 05:01 Creatinine 1.27 mg/dL (0.70-1.30) 02/25/18 05:01 Est GFR (MDRD) Af Amer > 60 (>60) 02/25/18 05:01 Est GFR (MDRD) Non-Af > 60 (>60) 02/25/18 05:01 Glucose 105 mg/dL (65-99) H 02/25/18 05:01 Calcium 7.7 mg/dL (8.5-10.1) L 02/25/18 05:01 Corrected Calcium 9.1 mg/dL (8.5-10.1) 02/25/18 05:01 Total Bilirubin 0.20 mg/dL (0.2-1.0) 02/25/18 05:01 AST 116 Units/L (15-37) H 02/25/18 05:01 ALT 105 Units/L (12-78) H 02/25/18 05:01 Alkaline Phosphatase 49 Units/L (46-116) 02/25/18 05:01 C-Reactive Protein 39.10 mg/L (0-3.0) H 02/24/18 14:09 Total Protein 6.0 g/dL (6.4-8.2) L 02/25/18 05:01 Albumin 2.3 g/dL (3.4-5.0) L 02/25/18 05:01 Globulin 3.7 g/dL (2.5-4.5) 02/25/18 05:01 Albumin/Globulin Ratio 0.6 Ratio (1.1-2.1) L 02/25/18 05:01 Amylase 89 Units/L (25-115) 02/17/18 13:36 Lipase 118 Units/L (73-393) 02/17/18 13:36 Specimen Type Clean catch urine 02/23/18 21:35 Urine Color Yellow (YELLOW) 02/23/18 21:35 Urine Appearance Clear (CLEAR) 02/23/18 21:35 Urine pH 7.0 (5.0 - 8.0) 02/23/18 21:35 Ur Specific [place] 1.010 (1.000-1.030) 02/23/18 21:35 Urine Protein 1+ (NEGATIVE) 02/23/18 21:35 Urine Glucose (UA) Negative (NEGATIVE) 02/23/18 21:35 Urine Ketones Negative (NEGATIVE) 02/23/18 21:35 Urine Occult Blood Negative (NEGATIVE) 02/23/18 21:35 Urine Nitrite Negative (NEGATIVE) 02/23/18 21:35 Urine Bilirubin Negative (NEGATIVE) 02/23/18 21:35 Urine Urobilinogen Normal (NORMAL) 02/23/18 21:35 Ur Leukocyte Esterase 1+ (NEGATIVE) 02/23/18 21:35 Urine RBC None seen /HPF (NONE SEEN) 02/23/18 21:35 Urine WBC 0-2 /HPF (NONE SEEN) 02/23/18 21:35 Ur Squamous Epith Cells Rare /HPF (NEGATIVE) 02/23/18 21:35 Amorphous Sediment 1+ /HPF (NEGATIVE) 02/17/18 13:47 Urine Bacteria Negative /HPF (NEGATIVE) 02/23/18 21:35 Urine Mucus Few /HPF (NEGATIVE) 02/23/18 09:45 Ur Culture Indicated? No/not indicated 02/23/18 21:35 Stool Description 4g,brown/yellow,soft 02/23/18 20:12 Stl Occult Blood (IFOB) Negative (NEGATIVE) 02/23/18 20:12 Stool for White Cells Positive (NEGATIVE) A 02/23/18 20:12 Stl C. diff Tox B Gene Negative (NEGATIVE) 02/23/18 20:12 Stl C. diff 027-NAP1-BI Negative (NEGATIVE) 02/23/18 20:12 Urine Opiates Screen Negative (NEG=<300) 02/17/18 13:48 Urine Methadone Screen Negative (NEG=<300) 02/17/18 13:48 Ur Barbiturates Screen Negative (NEG=<200) 02/17/18 13:48 Ur Phencyclidine Scrn Negative (NEG=<25) 02/17/18 13:48 Ur Amphetamines Screen Negative (NEG=<1000) 02/17/18 13:48 U Benzodiazepines Scrn Negative (NEG=<200) 02/17/18 13:48 Urine Cocaine Screen Negative (NEG=<300) 02/17/18 13:48 U Marijuana (THC) Screen Negative (NEG=<50) 02/17/18 13:48 Cryptosporid parvum Ag Negative (NEGATIVE) 02/23/18 20:12 Giardia lamblia Ag Negative (NEGATIVE) 02/23/18 20:12 Influenza Type A (PCR) Negative (NEGATIVE) 02/17/18 12:15 Influenza Type B (PCR) Negative (NEGATIVE) 02/17/18 12:15 S. pyogenes (TEM-PCR) Not detected (NOT DETECT) 02/17/18 12:15 - Plan (1) Fever Status: Acute Plan: AM LABS CBC CMP. STOOL STUDIES. GENTLE IV HYDRATION, IV ATBX. REPEAT AM LABS, ENCOURAGE ORAL HYDRATION (2) Enteritis Status: Acute Plan: IV ATBX, STOOL STUDIES (3) Abdominal pain Status: Acute (4) Dehydration Status: Acute Plan: GENTLE ORAL AND IV HYDRATION
[2018-02-25 20:39] VITALS: BP 116/79
[2018-02-27 20:59] LABS: HEPATITIS A ANTIBODY IGM Negative (Negative)
[2018-02-28 06:40] LABS: CMV IGG QUANT <0.20 U/mL; CMV IGM ANTIBODY <8.0 AU/mL (<=29.9); EPSTEIN-BARR VCA IGM <10.0 U/mL (0.0-43.9)
[2018-02-28 06:43] LABS: HEPATITIS B CORE IGM Negative (Negative); HEPATITIS B SURFACE ANTIGEN Negative (Negative)
== END 2018-02-25 20:20 | disposition short-term general hospital (02) | DRG 392 ==
LOC: ER 11:53 → MED/SURG 18:01
PROVIDERS: ADMIT Internal Medicine; ATTEND Internal Medicine
DX: E86.0 Dehydration; I10 Essential (primary) hypertension; R53.1 Weakness; R50.9 Fever, unspecified; K52.89 Other specified noninfective gastroenteritis and colitis; R10.84 Generalized abdominal pain; R51 Headache; I25.10 Atherosclerotic heart disease of native coronary artery without angina pectoris; R19.7 Diarrhea, unspecified; R94.4 Abnormal results of kidney function studies; R94.31 Abnormal electrocardiogram [ECG] [EKG]
CPT/HCPCS: 36415; 70450; 70486; 71010; 71020; 71045; 71046; 74022; 74176; 74177; 80053; 80074; 80307; 81001; 82150; 82270; 83630; 83690; 85025; 85652; 86140; 86644; 86645; 86663; 86664; 86665; 86701; 86703; 87040; 87045; 87086; 87328; 87329; 87389; 87427; 87449; 87493; 87502; 87651; 87899; 93005; 96365; 96374; 96375; 99282; 99284; A4222; S0028; S0030; G0434; J0696; J0744; J1885; J2550; J3490; J7030; J7050